=== PATIENT | male | born 1950 | race Caucasian/White ===

== ENCOUNTER 2018-01-08 08:48 | Observation (INO) ==
[2018-01-08] MEDS ORDERED: 0.9 % Sodium Chloride 1,000 ML IVC ONE (08:53)
--- NOTE | 2018-01-08 08:56 | Emergency Department Note ---
Disposition Clinical Impression: Pulmonary vascular congestion, Weakness Fall Qualifiers: Encounter type: initial encounter Qualified Code(s): W19.XXXA - Unspecified fall, initial encounter Disposition: Admitted As Inpatient Condition: Fair Time of Disposition: 12:02 General Adult HPI - General Stated complaint: Weakness both legs Time Seen by Provider: 01/08/18 08:49 Source: patient, EMS Mode of arrival: EMS Limitations: no limitations Nursing Notes Reviewed: Yes Vital Signs Reviewed: Yes - History of Present Illness HPI Narrative: Patient presents to the ED via EMS from the assisted. States he has a history of high blood pressure, but no other medical problems. Lives at a assisted but states he is not sure why. Reportedly, patient tried to get up out of bed this morning, felt short of breath a little lightheaded, but mainly had bilateral leg weakness and fell to the ground as he was unable to walk. Denies any back pain prior to or after the fall. No head injury. Did not lose consciousness. States that he was on the floor for up to 2 hours before someone found him. States he just feels really weak and rundown. Denying any chest pain at this time. No abdominal pain, nausea, vomiting or diarrhea. No fever. No urinary symptoms. No history of CHF. - Related Data Home Medications Medication Instructions Recorded Confirmed Ascorbic Acid [Vitamin C with Stephy 500 mg PO DAILY 01/08/18 01/08/18 Hips] Aspirin [Adult Aspirin] 81 mg PO DAILY 01/08/18 01/08/18 Cholecalciferol (D-3) [Vitamin D] 2,000 unit PO DAILY 01/08/18 01/08/18 Krill Oil 500 mg PO DAILY 01/08/18 01/08/18 Melatonin [Melatin] 3 mg PO HS 01/08/18 01/08/18 Metoprolol [Lopressor] 25 mg PO BID 01/08/18 01/08/18 Allergies Allergy/AdvReac Type Severity Reaction Status Date / Time No Known Allergies Allergy Verified 01/08/18 09:04 Review of Systems: As reviewed in the HPI. All other systems reviewed are negative or normal. Past Medical History - Past Medical History Attestation: Yes The following information was validated with the patient. Source: patient, old records reviewed Physical Exam CONSTITUTIONAL: [Chronically ill, alert and in no acute distress] EYES: [EOMI, clear conjunctiva, PERRLA] HENT: [Normocephalic, atraumatic, moist mucus membranes, normal oropharynx] NECK: [normal inspection, full ROM, trachea midline, no obvious swelling] PULMONARY: [normal lung sounds bilaterally, normal chest rise and fall, no respiratory distress or stridor, no wheezes, no rales, no rhonchi CARDIOVASCULAR: [regular rate, regular rhythm, normal heart sounds, no murmurs, distal extremities are warm and well perfused] GASTROINSTESTINAL: [soft, non-tender, non-rigid, non-distended, no guarding, no rebound, normal bowel sounds] GENITOURINARY/RECTAL: [deferred] NEUROLOGIC: [Alert, oriented x3, normal speech, moves all extremities, but lower extremities are significantly weaker compared to upper, unable to ambulate without assistance] EXTREMITIES: [Normal inspection, full ROM, no tenderness, + pedal edema, normal capillary refill] MUSCULOSKELETAL: [no gross deformities, atraumatic] SKIN: [No cyanosis, no diaphoresis, normal color, warm, no rash] PSYCHIATRIC: [normal mood and affect] Course Course Narrative: patient presenting with weakness, fall, 1-2 hour down time and possible near syncope. Will get labs including CK and head CT and admit. - Reevaluation(s) Reevaluation #1: labs are ok. patient still weak. Will admit for echo and MRI. Patient also had vascular congestion on CXR which is new. Vital Signs Temperature 97.9 F 01/08/18 08:51 Pulse Rate 82 01/08/18 08:51 Respiratory Rate 18 01/08/18 08:51 Blood Pressure 150/92 01/08/18 08:51 O2 Sat by Pulse Oximetry 95 01/08/18 08:51 Temperature 98.9 F 01/08/18 16:13 Pulse Rate 88 01/08/18 16:13 Respiratory Rate 18 01/08/18 16:13 Blood Pressure 116/73 01/08/18 16:13 O2 Sat by Pulse Oximetry 94 01/08/18 16:13 Oxygen Delivery Oxygen Delivery Room Air Medical Decision Making - Medical Records Medical records reviewed: Yes I reviewed the patient's medical records. - Lab Data Lab results reviewed: Yes I reviewed the patient's lab results. Result diagrams: 01/08/18 08:53 01/08/18 10:23 Lab Results 01/08/18 01/08/18 01/08/18 Range/Units 08:53 08:53 08:53 WBC 7.5 (4.3-11.1) K/mcL RBC 4.74 (4.19-5.50) M/mcL Hgb 14.8 (12.9-16.9) g/dL Hct 43.5 (37.5-50.1) % MCV 91.8 (83.0-100.0) fL MCH 31.2 (28.0-33.3) pg MCHC 34.0 (31.6-35.5) g/dL RDW 13.2 (11.5-14.5) % Plt Count 169 (140-400) K/mcL MPV 9.5 (9.4-12.4) fL Immature Gran % 0.4 (0-4) % Seg Neutrophils % 76.8 % Lymphocytes % 15.9 % Monocytes % 6.1 % Eosinophils % 0.4 % Basophils % 0.4 % Neutrophils # 5.7 (1.6-8.9) K/mcL Lymphocytes # 1.2 (0.6-4.6) K/mcL Monocytes # 0.5 (0.0-1.3) K/mcL Eosinophils # 0.0 (0.0-0.6) K/mcL Basophils # 0.0 (0.0-0.2) K/mcL PT 11.5 (9.4-12.1) Seconds INR 1.0 Sodium Cancelled Potassium Cancelled Chloride Cancelled Carbon Dioxide Cancelled BUN Cancelled Creatinine Cancelled Est GFR ( Amer) Cancelled Est GFR (Non-Af Amer) Cancelled BUN/Creatinine Ratio Cancelled Glucose Cancelled Calculated Osmolality Cancelled Lactic Acid (0.5-2.2) mmol/L Calcium Cancelled Venous Ioniz Calcium (1.15-1.35) mmol/L Phosphorus Cancelled Magnesium Cancelled Creatine Kinase Cancelled Troponin I < 0.03 (< 0.04) ng/mL B-Natriuretic Peptide (Less than 100) pg/mL TSH 1.963 (0.340-5.600) mcIU/mL Urine Color (Yellow) Urine Clarity (Clear) Urine pH (5.0-8.0) pH Units Ur Specific [place] (1.010-1.025) Urine Protein (Neg-Trace) mg/dL Urine Glucose (UA) (Normal) mg/dL Urine Ketones (Negative) mg/dL Urine Blood (Negative) Urine Nitrite (Negative) Urine Bilirubin (Negative) Urine Urobilinogen (Normal) mg/dL Ur Leukocyte Esterase (Negative) Ur Culture Indicated? (NO) Specimen Rejected 01/08/18 01/08/18 01/08/18 Range/Units 08:53 09:20 09:20 WBC (4.3-11.1) K/mcL RBC (4.19-5.50) M/mcL Hgb (12.9-16.9) g/dL Hct (37.5-50.1) % MCV (83.0-100.0) fL MCH (28.0-33.3) pg MCHC (31.6-35.5) g/dL RDW (11.5-14.5) % Plt Count (140-400) K/mcL MPV (9.4-12.4) fL Immature Gran % (0-4) % Seg Neutrophils % % Lymphocytes % % Monocytes % % Eosinophils % % Basophils % % Neutrophils # (1.6-8.9) K/mcL Lymphocytes # (0.6-4.6) K/mcL Monocytes # (0.0-1.3) K/mcL Eosinophils # (0.0-0.6) K/mcL Basophils # (0.0-0.2) K/mcL PT (9.4-12.1) Seconds INR Sodium Potassium Chloride Carbon Dioxide BUN Creatinine Est GFR ( Amer) Est GFR (Non-Af Amer) BUN/Creatinine Ratio Glucose Calculated Osmolality Lactic Acid 1.6 (0.5-2.2) mmol/L Calcium Venous Ioniz Calcium (1.15-1.35) mmol/L Phosphorus Magnesium Creatine Kinase Troponin I (< 0.04) ng/mL B-Natriuretic Peptide 20 (Less than 100) pg/mL TSH (0.340-5.600) mcIU/mL Urine Color (Yellow) Urine Clarity (Clear) Urine pH (5.0-8.0) pH Units Ur Specific [place] (1.010-1.025) Urine Protein (Neg-Trace) mg/dL Urine Glucose (UA) (Normal) mg/dL Urine Ketones (Negative) mg/dL Urine Blood (Negative) Urine Nitrite (Negative) Urine Bilirubin (Negative) Urine Urobilinogen (Normal) mg/dL Ur Leukocyte Esterase (Negative) Ur Culture Indicated? (NO) Specimen Rejected Hemolyzed 01/08/18 01/08/18 01/08/18 Range/Units 09:33 09:49 10:23 WBC (4.3-11.1) K/mcL RBC (4.19-5.50) M/mcL Hgb (12.9-16.9) g/dL Hct (37.5-50.1) % MCV (83.0-100.0) fL MCH (28.0-33.3) pg MCHC (31.6-35.5) g/dL RDW (11.5-14.5) % Plt Count (140-400) K/mcL MPV (9.4-12.4) fL Immature Gran % (0-4) % Seg Neutrophils % % Lymphocytes % % Monocytes % % Eosinophils % % Basophils % % Neutrophils # (1.6-8.9) K/mcL Lymphocytes # (0.6-4.6) K/mcL Monocytes # (0.0-1.3) K/mcL Eosinophils # (0.0-0.6) K/mcL Basophils # (0.0-0.2) K/mcL PT (9.4-12.1) Seconds INR Sodium 136 Potassium 4.3 Chloride 108 H Carbon Dioxide 21 L BUN 14 Creatinine 0.56 L Est GFR ( Amer) > 60 Est GFR (Non-Af Amer) > 60 BUN/Creatinine Ratio 25 Glucose 125 H Calculated Osmolality 284 Lactic Acid (0.5-2.2) mmol/L Calcium 9.0 Venous Ioniz Calcium 1.13 L (1.15-1.35) mmol/L Phosphorus 2.7 Magnesium 2.0 Creatine Kinase 113 Troponin I (< 0.04) ng/mL B-Natriuretic Peptide (Less than 100) pg/mL TSH (0.340-5.600) mcIU/mL Urine Color Yellow (Yellow) Urine Clarity Clear (Clear) Urine pH 6.0 (5.0-8.0) pH Units Ur Specific [place] 1.016 (1.010-1.025) Urine Protein Negative (Neg-Trace) mg/dL Urine Glucose (UA) Normal (Normal) mg/dL Urine Ketones Negative (Negative) mg/dL Urine Blood Negative (Negative) Urine Nitrite Negative (Negative) Urine Bilirubin Negative (Negative) Urine Urobilinogen Normal (Normal) mg/dL Ur Leukocyte Esterase Negative (Negative) Ur Culture Indicated? NO (NO) Specimen Rejected - Radiology Data Radiology results reviewed: Yes I reviewed the patient's radiology results. - EKG Data EKG #1 EKG attestation: Yes I reviewed and interpreted this EKG. Attestation Statement - Attestation Attestation: I examined this patient and my medical decision-making was reviewed with the Resident Physician. I agree with the documented findings, disposition and treatment plan as described except to the extent set forth below. Findings consistent with weakness, fall, inability to ambulate. Imaging as well as laboratory analyses show no acute findings. Patient still has systemic weakness with no objective explained above findings. The patient be admitted for further management workup
[2018-01-08 09:36] LABS: VBG Ionized Calcium 1.13 mmol/L (1.15-1.35)
[2018-01-08 09:37] LABS: Basophils % 0.4 %; Eosinophils % 0.4 %; Hematocrit 43.5 % (37.5-50.1); Hemoglobin 14.8 g/dL (12.9-16.9); Immature Granulocytes % 0.4 % (0-4); Lymphocytes # 1.2 K/mcL (0.6-4.6); Lymphocytes % 15.9 %; Mean Corpuscular Hemoglobin 31.2 pg (28.0-33.3); Mean Corpuscular Volume 91.8 fL (83.0-100.0); Mean Platelet Volume 9.5 fL (9.4-12.4); Monocytes # 0.5 K/mcL (0.0-1.3); Monocytes % 6.1 %; Neutrophils # 5.7 K/mcL (1.6-8.9); Platelet Count 169 K/mcL (140-400); Red Blood Count 4.74 M/mcL (4.19-5.50); Red Cell Distribution Width 13.2 % (11.5-14.5); Segmented Neutrophils % 76.8 %
[2018-01-08 09:38] LABS: Prothrombin Time 11.5 Seconds (9.4-12.1)
[2018-01-08 09:57] LABS: Troponin I < 0.03 ng/mL (< 0.04)
[2018-01-08 10:01] LABS: Bilirubin,Urine Negative (Negative); Blood,Urine Negative (Negative); Clarity,Urine Clear (Clear); Color,Urine Yellow (Yellow); Glucose,Urine (UA) Normal (Normal); Ketones,Urine Negative (Negative); Leukocyte Esterase,Urine Negative (Negative); Nitrite,Urine Negative (Negative); Protein,Urine Negative (Neg-Trace); Specific Gravity,Urine 1.016 (1.010-1.025); Urobilinogen,Urine Normal (Normal)
[2018-01-08 10:26] LABS: Thyroid Stimulating Hormone 1.963 mcIU/mL (0.340-5.600)
[2018-01-08 11:00] LABS: BUN/Creatinine Ratio 25 (6-26); Blood Urea Nitrogen 14 mg/dL (8-23); Carbon Dioxide 21 mEq/L (23-29); Chloride 108 mEq/L (98-107); Creatine Kinase 113 Units/L (30-223); Glucose 125 mg/dL (70-105); Osmolality,Calculated 284 (280-300); Phosphorous 2.7 mg/dL (2.7-4.5); Potassium 4.3 mEq/L (3.5-5.1); Sodium 136 mEq/L (136-145); eGFR For Non-African Americans > 60 (> 60)
[2018-01-08] MEDS ORDERED: Naloxone 0.4 MG/ML INJ IVP PRN (12:32)
[2018-01-08] MEDS ORDERED: *HR* Labetalol 20 MG/4 ML SYRINGE IVP PRN (12:50)
--- NOTE | 2018-01-08 12:57 | Internal Med History&Physical ---
Date of Encounter: 01/08/18 Time of Encounter: 12:45 Internal Medicine - H&P: HPI Chief complaint: LE heaviness, fall History of present illness: Mr. Adkins is a 67 year old male with past medical history of hypertension, who is a resident of [facility], presented to the ED after an episode of fall. He states that he has been getting worsening leg swelling for the last week or so. He will try to get out of bed this morning, stood up, but was unable to take the step forward as they felt "heavy". It resulted in him falling forward without head injury or loss of consciousness. After the fall, he was unable to get himself back up and apparently was on the floor for an hour or so before someone else found him. Denies any chest pain, shortness of breath, palpitation , orthopnea, or PND. No fever/chills, flulike symptoms, cough or sputum production, abdominal pain, change in bowel habits, or dysuria. No joint pain or rash. No history of recent immobilization or trauma. States that he does not have any history of CAD or TIA/stroke. No family history of premature CAD. Does not smoke, drink EtOH, or abuses illicit drug. In the ED, he was afebrile and hemodynamically stable. Labs were unremarkable including normal CBC, BMP, and PT/INR. Troponin 1 was negative, electrolytes within normal limits except ionized calcium being 1.13 (low normal limit 1.15). Urinalysis was unremarkable and chest x-ray did not show any consolidation but was suggestive of mild pulmonary vascular congestion. CT head did not show any acute intracranial processes. BNP was not checked and he was given IV fluid in the ER then admitted for observation. Past Med Surg Social Fam HX - Past Medical History Attestation: Yes The following information was validated with the patient. Medical history: hypertension Psychiatric history: anxiety, depression, schizophrenia - Social History Smoking Status: Never smoker Alcohol use: none Drug use: none - Family History Mother History Unknown: Yes Living Status: Hx Family Cardiac Disorders: No Father History Unknown: Yes Living Status: Hx Family Cardiac Disorders: No Internal Medicine - H&P: Meds Ascorbic Acid [Vitamin C with Stephy Hips] 500 mg PO DAILY 01/08/18 [History] Aspirin [Adult Aspirin] 81 mg PO DAILY 01/08/18 [History] Cholecalciferol (D-3) [Vitamin D] 2,000 unit PO DAILY 01/08/18 [History] Krill Oil 500 mg PO DAILY 01/08/18 [History] Melatonin [Melatin] 3 mg PO HS 01/08/18 [History] Metoprolol [Lopressor] 25 mg PO BID 01/08/18 [History] 3 Allergy/AdvReac Type Severity Reaction Status Date / Time No Known Allergies Allergy Verified 01/08/18 09:04 All Systems PM: A 10-system review of systems was performed and is negative for pertinent findings except as documented above in the HPI. - Constitutional Vitals: Temp Pulse Resp BP Pulse Ox 97.8 F 85 16 177/98 96 01/08/18 12:43 01/08/18 12:43 01/08/18 12:43 01/08/18 12:43 01/08/18 12:43 Exam: General: Alert and oriented, not in acute distress. HEENT:EOM, pupils equal, round and reactive. Cardiovascular:Normal S1 & S2, No JVD. Pulse regular. Mild pitting edema on both legs upto mid shins but worse on the right. Lungs: clear to auscultation, no wheezes/rales Abdomen:Soft, non-tender, no rigidity. Extremities: Leg swelling as above, no tenderness on both lower extremities. Calves are supple. Neurological: CN II-XII intact, tongue midline, no gaze preference, no pronator drift. No cerebellar signs and downgoing Babinski bilaterally. Power and sensation fully intact on both upper and lower limbs. Skin:Normal color, no rash, no lesions. Pulses:Carotid and radial pulses normal +2. Rest of the physical exam is non contributory Internal Med - H&P Results - Labs CBC & Chem 7: 01/08/18 08:53 01/08/18 10:23 - Assessment and plan (1) Swelling of lower leg Current Visit: Yes Status: Acute Assessment and plan: slightly worse on the right, no skin changes consistent with chronic venous stasis or cellulitis noted Associated chest x-ray showing mild pulmonary vascular congestion but otherwise asymptomatic and is not requiring oxygen. ?new heart failure, to rule out DVT Check BNP 1 dose of IV lasix 40mg Echo LE doppler (2) Fall Current Visit: Yes Status: Acute Assessment and plan: Appears to be related to the above dx, unable to lift up the leg due to "heaviness" no focal neurological deficits seen, CT Head -ve telemetry overnight for possible underlying arrhythmia check 1 more troponin to rule out ACS PT/OT investigation for LE swelling as above Qualifiers: Encounter type: initial encounter Qualified Code(s): W19.XXXA - Unspecified fall, initial encounter (3) Hypertension Current Visit: Yes Status: Chronic Assessment and plan: elevated blood pressure, apparently on Lopressor 25 mg twice a day at home. Uncontrolled hypertension can possibly explain undiagnosed diastolic heart failure, echo to confirm PRN labetalol today may have to uptitrate or change anti-HTN meds Qualifiers: Hypertension type: essential hypertension Qualified Code(s): I10 - Essential (primary) hypertension (4) DVT prophylaxis Current Visit: Yes Status: Acute Assessment and plan: heparin SQ - Time Spent With Patient Total time spent is greater than 50% in coordination of care (as documented) at patient's floor/unit and/or counseling patient:
[2018-01-08] MEDS ORDERED: Furosemide 40 MG in 0.9 % Sodium Chloride 50 ML IV ONE (13:03)
[2018-01-08] MEDS: *HR* Heparin 5,000 UNIT/ML VIAL SQ SCH ×2 (13:51→21:58)
[2018-01-08] MEDS: Melatonin 3 MG TABLET PO SCH (21:58)
[2018-01-09] MEDS: *HR* Heparin 5,000 UNIT/ML VIAL SQ SCH ×3 (06:15→21:00)
[2018-01-09 06:21] LABS: Hematocrit 40.9 % (37.5-50.1); Hemoglobin 13.8 g/dL (12.9-16.9); Mean Corpuscular HGB Conc 33.7 g/dL (31.6-35.5); Mean Corpuscular Hemoglobin 30.4 pg (28.0-33.3); Mean Corpuscular Volume 90.1 fL (83.0-100.0); Mean Platelet Volume 9.7 fL (9.4-12.4); Platelet Count 168 K/mcL (140-400); Red Blood Count 4.54 M/mcL (4.19-5.50); Red Cell Distribution Width 13.4 % (11.5-14.5)
[2018-01-09 06:35] LABS: BUN/Creatinine Ratio 24 (6-26); Blood Urea Nitrogen 15 mg/dL (8-23); Calcium 9.4 mg/dL (8.6-10.3); Carbon Dioxide 25 mEq/L (23-29); Chloride 104 mEq/L (98-107); Chol/HDL Ratio 6.1 (0-4.9); Glucose 133 mg/dL (70-105); Osmolality,Calculated 285 (280-300); Sodium 136 mEq/L (136-145); eGFR For Non-African Americans > 60 (> 60)
[2018-01-09 07:45] LABS: Estimated Average Glucose 128 mg/dl; Hemoglobin A1C 6.1 %
[2018-01-09] MEDS ORDERED: Krill Oil [Krill Oil] 500 MG PO SCH (09:00)
[2018-01-09] MEDS: Ascorbic Acid 500 MG TABLET PO SCH (09:48)
[2018-01-09] MEDS: Cholecalciferol (D-3) 1,000 UNIT TABLET PO SCH (09:48)
[2018-01-09] MEDS: Aspirin Enteric Coated 81 MG Tablet PO SCH (09:48)
--- NOTE | 2018-01-09 13:08 | Internal Med Progress Note ---
Hospitalist Progress Note - Encounter Date of Encounter: 01/09/18 Time of Encounter: 11:30 - Subjective Interval History: states that he feels pretty good, still has leg heaviness. Breathing is ok, no chest pain - Exam Vitals: Temp Pulse Resp BP Pulse Ox 98.2 F 85 16 132/77 93 01/09/18 11:18 01/09/18 11:18 01/09/18 11:18 01/09/18 11:18 01/09/18 11:18 Exam: General: Alert and oriented, not in acute distress. Cardiovascular:Normal S1 & S2, No JVD. Pulse regular. Mild pitting edema on both legs upto mid shins but worse on the right. Lungs: clear to auscultation, no wheezes/rales Abdomen:Soft, non-tender, no rigidity. Extremities: Leg swelling as above, no tenderness on both lower extremities. Calves are supple. Neurological: CN II-XII intact, tongue midline, no gaze preference, no pronator drift. No cerebellar signs and downgoing Babinski bilaterally. Power and sensation fully intact on both upper and lower limbs. - Assessment and Plan (1) Swelling of lower leg Current Visit: Yes Status: Acute Assessment and Plan: slightly worse on the right, no skin changes consistent with chronic venous stasis or cellulitis noted Associated chest x-ray showing mild pulmonary vascular congestion but otherwise asymptomatic and is not requiring oxygen. less likely due to new onset of CHF given normal BNP, although it can be falsely low in obese patient, echo report pending Doppler reportedly showed superficial vein thrombosis (no official report available) -> depending on the proximity to deep vein, will decide on anticoagulation PT/OT (2) Fall Current Visit: Yes Status: Acute Assessment and Plan: Appears to be related to the above dx, unable to lift up the leg due to "heaviness" no focal neurological deficits seen, CT Head -ve troponin x 2 negative no arrhythmia noted overnight PT/OT investigation for LE swelling as above (3) Hypertension Current Visit: Yes Status: Chronic Assessment and Plan: elevated blood pressure, apparently on Lopressor 25 mg twice a day at home. Uncontrolled hypertension can possibly explain undiagnosed diastolic heart failure, echo to confirm start coreg 6.25mg BID, PRN labetalol (4) DVT prophylaxis Current Visit: Yes Status: Acute Assessment and Plan: heparin SQ - Time Spent with Patient Total time spent is greater than 50% in coordination of care (as documented) at patient's floor/unit and/or counseling patient: Plan of Care Discussed with: nurse Internal Medicine: Result - Labs CBC & Chem 7: 01/09/18 05:47 01/09/18 05:47 Labs: Short CBC 01/09/18 Range/Units 05:47 WBC 6.5 (4.3-11.1) K/mcL Hgb 13.8 (12.9-16.9) g/dL Hct 40.9 (37.5-50.1) % Plt Count 168 (140-400) K/mcL BMP 01/09/18 05:47 Sodium 136 Potassium 4.0 Chloride 104 Carbon Dioxide 25 BUN 15 Creatinine 0.63 L Glucose 133 H Calcium 9.4 Cardiac Enzymes 01/08/18 Range/Units 14:40 Troponin I < 0.03 (< 0.04) ng/mL - ABG Interpretation ABG results: PT/INR, D-dimer PT 11.5 Seconds (9.4-12.1) 01/08/18 08:53 Consult Discharge Plan - Plan [facility]errals: [facility] [Primary Care Provider[facility] - (2) Fall Qualifiers: Encounter type: initial encounter Qualified Code(s): W19.XXXA - Unspecified fall, initial encounter (3) Hypertension Qualifiers: Hypertension type: essential hypertension Qualified Code(s): I10 - Essential (primary) hypertension
[2018-01-09] MEDS: Melatonin 3 MG TABLET PO SCH (21:00)
[2018-01-10] MEDS: *HR* Heparin 5,000 UNIT/ML VIAL SQ SCH (05:18)
[2018-01-10] MEDS: Aspirin Enteric Coated 81 MG Tablet PO SCH (07:39)
[2018-01-10] MEDS: Cholecalciferol (D-3) 1,000 UNIT TABLET PO SCH (07:39)
[2018-01-10] MEDS: Ascorbic Acid 500 MG TABLET PO SCH (07:39)
--- NOTE | 2018-01-10 10:17 | Discharge Summary ---
- NOTES TO OUTPATIENT PROVIDER Notes to Outpatient Provider: Patient with history of hypertension was admitted for bilateral lower extremity swelling. There was a concern of whether his symptoms were related to new onset CHF as his initial CXR was reported to have pulmonary vascular congestion. However, he did not require any oxygen and his BNP was only 20. Echocardiogram showed intact EF with mild diastolic dysfunction. Doppler study however demonstrated superficial vein thrombosis at bilateral GSV below the knees. Since it was remote from saphenofemoral junction , he was not started on anticoagulation and was advised to follow up outpatient for re-evaluation. If there is any sign of worsening, he will need repeat doppler to see whether there is a propagation of thrombosis which will then warrant systemic anticoagulation. He will also be discharged with PO lasix 20mg. Date of Encounter: 01/10/18 Time of Encounter: 08:50 - Discharge Diagnosis (1) Superficial vein thrombosis Priority: Primary Status: Acute (2) Fall Priority: Secondary Status: Acute Qualifiers: Encounter type: initial encounter Qualified Code(s): W19.XXXA - Unspecified fall, initial encounter (3) Hypertension Priority: Secondary Status: Chronic Qualifiers: Hypertension type: essential hypertension Qualified Code(s): I10 - Essential (primary) hypertension (4) DVT prophylaxis Priority: Secondary Status: Acute Hospital course: Mr. Adkins is a 67 year old male with history of hypertension who was admitted for bilateral lower extremity swelling. There was a concern of whether his symptoms were related to new onset CHF as his initial CXR was reported to have pulmonary vascular congestion. However, he did not require any oxygen and his BNP was only 20. He was given 1 dose of IV lasix which helped with his swelling a bit. Echocardiogram showed intact EF with mild diastolic dysfunction. Doppler study however demonstrated superficial vein thrombosis at bilateral GSV below the knees. Since it was remotely away from saphenofemoral junction, he was not started on anticoagulation and was advised to follow up outpatient for re-evaluation. If there is any sign of worsening, he will need repeat doppler to see whether there is a propagation of thrombosis which will then warrant systemic anticoagulation. PT had also evaluated the patient and deemed safe for discharge back to the prior setting without additional needs. He will be treated with NSAIDs and was advised to elevate his legs as much as possible. He will also be discharged with PO lasix 20mg and repeat BMP in a week. - Time Spent with Patient Total time spent providing and/or coordinating discharge services: Greater than 30 minutes - Discharge Medications Prescriptions: Atorvastatin [Lipitor] 40 mg PO HS #30 tablet Carvedilol [Coreg] 6.25 mg PO BIDWM #60 tablet Furosemide [Lasix] 20 mg PO DAILY #30 tablet Ibuprofen 200 mg PO TID 5 Days #15 tablet Home Medications: Ascorbic Acid [Vitamin C with Stephy Hips] 500 mg PO DAILY 01/08/18 [History] Aspirin [Adult Aspirin] 81 mg PO DAILY 01/08/18 [History] Cholecalciferol (D-3) [Vitamin D] 2,000 unit PO DAILY 01/08/18 [History] Krill Oil 500 mg PO DAILY 01/08/18 [History] Melatonin [Melatin] 3 mg PO HS 01/08/18 [History] Atorvastatin [Lipitor] 40 mg PO HS #30 tablet 01/10/18 [Rx] Carvedilol [Coreg] 6.25 mg PO BIDWM #60 tablet 01/10/18 [Rx] Furosemide [Lasix] 20 mg PO DAILY #30 tablet 01/10/18 [Rx] Ibuprofen 200 mg PO TID 5 Days #15 tablet 01/10/18 [Rx] Allergies/Adverse Reactions: 3 Allergy/AdvReac Type Severity Reaction Status Date / Time No Known Allergies Allergy Verified 01/08/18 09:04 Date of admission: 01/08/18 12:06 Primary care physician: PCP [place] Consults: 01/08/18 12:35 Consult to Occupational Therapy [CONS] Routine Comment: Evaluate, develop and implement POC Reason for Consult: fall, deconditioning Does patient have active BEDREST order?: No Is patient medically & hemodynamically stable?: Yes Consult to Physical Therapy [CONS] Routine Comment: Evaluate, develop and implement POC Reason for Consult: fall, deconditioning Does patient have active BEDREST order?: No Is patient medically & hemodynamically stable?: Yes 01/08/18 12:54 Consult to Pastoral Services [CONS] Routine Comment: - Constitutional Vitals: Temp Pulse Resp BP Pulse Ox 97.7 F 67 16 133/86 95 01/10/18 06:48 01/10/18 06:48 01/10/18 06:48 01/10/18 06:48 01/10/18 06:48 Exam: General: Alert and oriented, not in acute distress. Cardiovascular:Normal S1 & S2, No JVD. Pulse regular. Mild pitting edema on upto ankles on the right Lungs: clear to auscultation, no wheezes/rales Abdomen:Soft, non-tender, no rigidity. Extremities: Leg swelling as above, no tenderness on both lower extremities. Calves are supple. Neurological: CN II-XII intact, tongue midline, no gaze preference, no pronator drift. No cerebellar signs and downgoing Babinski bilaterally. Power and sensation fully intact on both upper and lower limbs. - Patient Status Disposition: Home, Self-Care Condition: Fair Overall status at discharge: patient is progressing back to baseline - Discharge Instructions Instructions: Chronic Hypertension (DC), Fall Prevention (DC) Follow Up With: TIARA,PCP [Primary Care Provider] - 01/17/18 3:00 pm (Please follow up as schedule...) Forms: ED Satisfaction Letter - Diet and Activity Activity: as per physical therapy Diet: low fat, low cholesterol
[2018-01-10 10:45] VITALS: BP 131/74
--- NOTE | 2018-01-11 07:39 | Electrocardiograph Report ---
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
== END 2018-01-10 15:53 | disposition home or self-care (01) ==
LOC: 2ANU 08:48 → EMEROOARM 08:48 → SUATTDRO 12:06 → 2ANU 12:29
PROVIDERS: ADMIT Internal Medicine; ATTEND Internal Medicine

== ENCOUNTER 2018-02-08 08:00 | Inpatient (IN) ==
--- NOTE | 2018-02-08 08:43 | Emergency Department Note ---
Disposition Clinical Impression: Leg weakness, bilateral Disposition: Admitted As Inpatient Condition: Good Time of Disposition: 09:49 Weakness HPI - General Stated complaint: Weakness Time Seen by Provider: 02/08/18 08:35 Source: patient, EMS Mode of arrival: EMS Limitations: no limitations Nursing Notes Reviewed: Yes Vital Signs Reviewed: Yes - History of Present Illness HPI Narrative: Patient arrives by EMS from a nursing home. He states he woke up generally weak this morning, especially in his legs. He states he usually walks with a walker but cannot ambulate fully today. He has had this before. He describes a mechanical fall without injury. He denies headache, chest pain, back pain or any other acute symptoms. Pt Subjective Complaint: generalized weakness/fatigue Onset (ago): hour(s) Duration: constant Location: LLE, RLE Migration: none Pain Severity: none Improves with: none Worsens with: movement Associated symptoms: Reports: other (Fall without injury) - Related Data Home Medications Medication Instructions Recorded Confirmed Ascorbic Acid [Vitamin C with Stephy 500 mg PO DAILY 01/08/18 01/08/18 Hips] Aspirin [Adult Aspirin] 81 mg PO DAILY 01/08/18 01/08/18 Cholecalciferol (D-3) [Vitamin D] 2,000 unit PO DAILY 01/08/18 01/08/18 Krill Oil 500 mg PO DAILY 01/08/18 01/08/18 Melatonin [Melatin] 3 mg PO HS 01/08/18 01/08/18 Previous Rx's Medication Instructions Recorded Atorvastatin [Lipitor] 40 mg PO HS #30 tablet 01/10/18 Carvedilol [Coreg] 6.25 mg PO BIDWM #60 tablet 01/10/18 Furosemide [Lasix] 20 mg PO DAILY #30 tablet 01/10/18 Ibuprofen 200 mg PO TID 5 Days #15 tablet 01/10/18 Allergies Allergy/AdvReac Type Severity Reaction Status Date / Time No Known Allergies Allergy Verified 01/08/18 09:04 All systems ED: reviewed and negative except as stated. Constitutional: Reports: weakness Eyes: Reports: as per HPI ENT ED: Reports: as per HPI Cardiovascular: Reports: as per HPI Respiratory: Reports: as per HPI Gastrointestinal: Reports: as per HPI Genitourinary: Reports: as per HPI Musculoskeletal: Reports: as per HPI Integumentary: Reports: as per HPI Neurological: Reports: weakness Psychiatric: Reports: as per HPI Endocrine: Reports: as per HPI Hematological/Lymphatic: Reports: as per HPI Allergic/Immunologic: Reports: as per HPI Past Medical History - Past Medical History Source: patient Medical history: Reports: hypertension Psychiatric history: Reports: anxiety, depression, schizophrenia - Social History Smoking Status: Never smoker Smokeless Tobacco Status: No Alcohol use: Reports: none Drug use: Reports: none Physical Exam - General Limitations: no limitations General appearance: alert - Head Head exam: atraumatic - Eye Eye exam: Present: normal appearance - ENT ENT exam: normal exam - Neck Neck exam: Present: normal inspection, full ROM - Chest Chest inspection: Present: normal inspection, symmetric chest wall rise - Respiratory Respiratory exam: Present: normal lung sounds bilaterally - Cardiovascular Cardiovascular exam: Present: regular rate, normal rhythm, normal heart sounds - Abdominal Exam Abdominal exam: Present: soft, Non-Tender - Rectal Exam Rectal exam: Present: deferred - Extremities Exam Extremities exam: Present: normal inspection, other (Full movement of all 4 extremities without limitation. He is able to hold his legs off the bed versus gravity but bilaterally his leg seemed weaker than his upper extremities) - Back Exam Back exam: Present: normal inspection - Neurological Exam Neurological exam: Present: alert, oriented X3, CN II-XII intact - Psychiatric Psychiatric exam: Present: flat affect - Skin Skin exam: Present: warm, dry, intact Course Course Narrative: Patient presents with the inability to ambulate due to lower extremity weakness. I cannot appreciate any focal neurologic deficit. I do see that he was admitted for similar symptoms several weeks ago. - Reevaluation(s) Reevaluation #1: The patient refuses to attempt to ambulate with the assistance of staff and a walker. I will request admission. He lives in a nursing home and is a fall risk Vital Signs Temperature 98.1 F 02/08/18 08:39 Pulse Rate 73 02/08/18 08:39 Respiratory Rate 20 02/08/18 08:39 Blood Pressure 133/88 02/08/18 08:39 O2 Sat by Pulse Oximetry 93 02/08/18 08:39 Temperature 98.1 F 02/08/18 08:39 Pulse Rate 73 02/08/18 08:39 Respiratory Rate 20 02/08/18 08:39 Blood Pressure 133/88 02/08/18 08:39 O2 Sat by Pulse Oximetry 93 02/08/18 08:39 Oxygen Delivery Oxygen Delivery Room Air Weakness - Medical Records Medical records reviewed: Yes I reviewed the patient's medical records. - Lab Data Lab results reviewed: Yes I reviewed the patient's lab results. Result diagrams: 02/08/18 08:45 02/08/18 08:45 Lab Results 02/08/18 02/08/18 02/08/18 Range/Units 08:45 08:45 09:24 WBC 7.3 (4.3-11.1) K/mcL RBC 4.50 (4.19-5.50) M/mcL Hgb 14.1 (12.9-16.9) g/dL Hct 40.5 (37.5-50.1) % MCV 90.0 (83.0-100.0) fL MCH 31.3 (28.0-33.3) pg MCHC 34.8 (31.6-35.5) g/dL RDW 13.1 (11.5-14.5) % Plt Count 151 (140-400) K/mcL MPV 9.6 (9.4-12.4) fL Immature Gran % 0.1 (0-4) % Seg Neutrophils % 69.6 % Lymphocytes % 22.1 % Monocytes % 6.3 % Eosinophils % 1.5 % Basophils % 0.4 % Neutrophils # 5.1 (1.6-8.9) K/mcL Lymphocytes # 1.6 (0.6-4.6) K/mcL Monocytes # 0.5 (0.0-1.3) K/mcL Eosinophils # 0.1 (0.0-0.6) K/mcL Basophils # 0.0 (0.0-0.2) K/mcL Sodium 138 (136-145) mEq/L Potassium 4.3 (3.5-5.1) mEq/L Chloride 110 H (98-107) mEq/L Carbon Dioxide 21 L (23-29) mEq/L BUN 15 (8-23) mg/dL Creatinine 0.56 L (0.70-1.30) mg/dL Est GFR ( Amer) > 60 (> 60) Est GFR (Non-Af Amer) > 60 (> 60) BUN/Creatinine Ratio 27 H (6-26) Glucose 141 H (70-105) mg/dL Calculated Osmolality 289 (280-300) Calcium 9.0 (8.6-10.3) mg/dL Magnesium 2.0 (1.6-2.6) mg/dL Total Bilirubin 0.9 (0.3-1.0) mg/dL AST 19 (13-39) Units/L ALT 25 (7-52) Units/L Alkaline Phosphatase 100 (34-104) Units/L Creatine Kinase 125 (30-223) Units/L Troponin I < 0.03 (< 0.04) ng/mL Serum Total Protein 6.9 (6.4-8.9) g/dL Albumin 3.9 (3.5-5.7) g/dL Globulin 3.0 (2.4-3.5) g/dL Albumin/Globulin Ratio 1.3 (1.1-2.2) Urine Color Yellow (Yellow) Urine Clarity Clear (Clear) Urine pH 6.0 (5.0-8.0) pH Units Ur Specific [place] 1.008 L (1.010-1.025) Urine Protein Negative (Neg-Trace) mg/dL Urine Glucose (UA) Normal (Normal) mg/dL Urine Ketones Negative (Negative) mg/dL Urine Blood Negative (Negative) Urine Nitrite Negative (Negative) Urine Bilirubin Negative (Negative) Urine Urobilinogen Normal (Normal) mg/dL Ur Leukocyte Esterase Negative (Negative) - Radiology Data Radiology results reviewed: Yes I reviewed the patient's radiology results. - EKG Data EKG attestation: Yes I reviewed and interpreted this EKG. EKG results narrative: Normal sinus rhythm rate 70 to P-R 164 QRS 84 QT/QTC 398/436. No acute ST segment elevation. No studies available for comparison at the time of the patient's arrival
[2018-02-08 08:58] LABS: Basophils % 0.4 %; Eosinophils # 0.1 K/mcL (0.0-0.6); Eosinophils % 1.5 %; Hematocrit 40.5 % (37.5-50.1); Hemoglobin 14.1 g/dL (12.9-16.9); Immature Granulocytes % 0.1 % (0-4); Lymphocytes # 1.6 K/mcL (0.6-4.6); Lymphocytes % 22.1 %; Mean Corpuscular HGB Conc 34.8 g/dL (31.6-35.5); Mean Corpuscular Hemoglobin 31.3 pg (28.0-33.3); Mean Platelet Volume 9.6 fL (9.4-12.4); Monocytes # 0.5 K/mcL (0.0-1.3); Monocytes % 6.3 %; Neutrophils # 5.1 K/mcL (1.6-8.9); Platelet Count 151 K/mcL (140-400); Red Cell Distribution Width 13.1 % (11.5-14.5); Segmented Neutrophils % 69.6 %
[2018-02-08 09:19] LABS: Troponin I < 0.03 ng/mL (< 0.04)
[2018-02-08 09:20] LABS: Alanine Aminotransferase 25 Units/L (7-52); Albumin 3.9 g/dL (3.5-5.7); Albumin/Globulin Ratio 1.3 (1.1-2.2); Alkaline Phosphatase 100 Units/L (34-104); Aspartate Amino Transferase 19 Units/L (13-39); BUN/Creatinine Ratio 27 (6-26); Bilirubin,Total 0.9 mg/dL (0.3-1.0); Blood Urea Nitrogen 15 mg/dL (8-23); Carbon Dioxide 21 mEq/L (23-29); Chloride 110 mEq/L (98-107); Creatine Kinase 125 Units/L (30-223); Glucose 141 mg/dL (70-105); Osmolality,Calculated 289 (280-300); Potassium 4.3 mEq/L (3.5-5.1); Sodium 138 mEq/L (136-145); Total Protein 6.9 g/dL (6.4-8.9); eGFR For Non-African Americans > 60 (> 60)
[2018-02-08 09:30] LABS: Bilirubin,Urine Negative (Negative); Blood,Urine Negative (Negative); Clarity,Urine Clear (Clear); Color,Urine Yellow (Yellow); Glucose,Urine (UA) Normal (Normal); Ketones,Urine Negative (Negative); Leukocyte Esterase,Urine Negative (Negative); Nitrite,Urine Negative (Negative); Protein,Urine Negative (Neg-Trace); Specific Gravity,Urine 1.008 (1.010-1.025); Urobilinogen,Urine Normal (Normal)
[2018-02-08] MEDS ORDERED: Acetaminophen 325 MG TABLET PO PRN (13:29)
[2018-02-08] MEDS ORDERED: traMADol 50 MG TABLET PO PRN (13:29)
[2018-02-08] MEDS ORDERED: Naloxone 0.4 MG/ML INJ IVP PRN (13:29)
--- NOTE | 2018-02-08 13:44 | Internal Med History&Physical ---
<AyshaCarlos Enrique - Last Filed: 02/08/18 14:26> Date of Encounter: 02/08/18 Time of Encounter: 12:45 Internal Medicine - H&P: HPI Chief complaint: Bilateral LE weakness Admitted From: Emergency Dept Plans for Post Hospital Care: Home History of present illness: Mr. Adkins is a 67 year old male w/PMH of HTN, HLD, anxiety, depression, and schizophrenia presents from the ED w/CC of bilateral LE weakness that has been worsening according to the pt. He reports that he went to get up today and fell d/t his legs going out from under him without warning. States this happened before approx. two years ago. States that his legs feel warm but denies numbness or tingling. Denies chronic back pain. States he has no CVA hx. No alleviating or aggravating factors. Uses a walker. Reports falling this morning w/o hitting his head or blacking out. Pt. denies recent illness, fever, chills, nausea, vomiting, headache, chest pain, shortness of breath, changes in vision, numbness, tingling, unusual bleeding, abdominal pain, back pain, diarrhea, constipation, dizziness, lightheadedness, pre-syncope, or syncope. Past Med Surg Social Fam HX - Past Medical History Source: patient, old records reviewed Medical history: hyperlipidemia, hypertension Psychiatric history: anxiety, depression, schizophrenia - Social History Smoking Status: Never smoker Smokeless Tobacco Status: No Alcohol use: none Drug use: none Current living situation: [facility] Activity Level: Uses cane/walker Recent Out of Country Travel Within the Last 8 Weeks: No Exposure or Possible Exposure to Illness During Travel: No - Family History Mother Race: Family Member Ethnicity: Non- Living Status: Age at : 79 Cause of : MRSA in decubitus ulcer Father Race: Family Member Ethnicity: Non- Living Status: Age at : 64 Cause of : Emphysema Hx Family Respiratory Disorders: Yes (Emphysema/COPD) Sister Race: Family Member Ethnicity: Non- Living Status: Still Living Hx Family Respiratory Disorders: Yes (COPD/Emphysema) Internal Medicine - H&P: Meds Ascorbic Acid [Vitamin C with Stephy Hips] 500 mg PO DAILY 01/08/18 [History] Aspirin [Adult Aspirin] 81 mg PO DAILY 01/08/18 [History] Cholecalciferol (D-3) [Vitamin D] 2,000 unit PO DAILY 01/08/18 [History] Krill Oil 500 mg PO DAILY 01/08/18 [History] Melatonin [Melatin] 3 mg PO HS 01/08/18 [History] Atorvastatin [Lipitor] 40 mg PO HS #30 tablet 01/10/18 [Rx] Carvedilol [Coreg] 6.25 mg PO BIDWM #60 tablet 01/10/18 [Rx] Furosemide [Lasix] 20 mg PO DAILY #30 tablet 01/10/18 [Rx] Ibuprofen 200 mg PO TID 5 Days #15 tablet 01/10/18 [Rx] 3 Allergy/AdvReac Type Severity Reaction Status Date / Time No Known Allergies Allergy Verified 01/08/18 09:04 All Systems PM: A 10-system review of systems was performed and is negative for pertinent findings except as documented above in the HPI. - Constitutional Constitutional: as per HPI, falls, weakness (Bilateral LEs), no chills, no fever (s), no night sweats - EENT Eyes: no change in vision, no discharge, no pain, no photophobia Ears: no ear discharge, no ear pain, no tinnitus Nose, mouth and throat: no dysphagia, no nasal discharge, no neck pain, no sore throat - Breasts Breasts: as per HPI - Cardiovascular Cardiovascular ROS IM: as per HPI, no chest pain, no diaphoresis, no dyspnea, no lightheadedness, no palpitations, no syncope - Respiratory Respiratory: as per HPI, no cough, no dyspnea, no wheezing, no excessive phlegm production - Gastrointestinal Gastrointestinal: as per HPI, no abdominal pain, no diarrhea, no hematemesis, no hematochezia, no melena, no nausea, no vomiting - Genitourinary Genitourinary ROS male: as per HPI - Musculoskeletal Musculoskeletal ROS IM: as per HPI, muscle weakness (Bilateral LEs), no numbness , no tingling - Integumentary Integumentary IM: no rash, no unusual bruising - Neurological Neurological ROS: as per HPI, weakness (Bilateral LEs), no confusion, no convulsions, no focal weakness, no numbness, no tingling, no tremor(s) - Psychiatric Psychiatric: as per HPI, anxiety, depression, other (Schizophrenia) - Endocrine Endocrine IM: as per HPI - Hematologic/Lymphatic Hematologic/Lymphatic: no easy bruising - Allergic/Immunologic Allergic/Immunologic: as per HPI - Constitutional Vitals: Temp Pulse Resp BP Pulse Ox 97.8 F 61 16 115/80 95 02/08/18 11:00 02/08/18 11:00 02/08/18 11:00 02/08/18 11:00 02/08/18 11:00 General appearance: Present: cooperative, A&O X 3, pleasant, no acute distress, obese, answers questions appropriately Exam: Patient examined at bedside. Pt. resting comfortably in bed and given neuro exam to assess for other weakness/deficits. Bilateral UE strength equal. No facial droop, pronator drift, slurred speech, or other neuro deficits. LE weakness bilaterally. Pt. able to raise legs off bed but unable to hold for extended period of time. Weakness in push/pull of feet. Bilateral LEs sensitive to touch/stimulation. Pt. denies any other complaints at this time. VS: temp 97.8F, HR 61, RR 16, BP 115/80, SpO2 95% on RA. - Head Head exam: Present: atraumatic, normocephalic - Eye Eye exam: Present: PERRL, conjuntiva pink, sclera anicteric Pupils: Present: PERRL - ENT ENT exam: Present: normal exam - Neck Neck exam general surgery: Present: normal inspection, supple, trachea midline. Absent: lymphadenopathy - Respiratory Respiratory exam: Present: CTAB. Absent: accessory muscle use, rales, rhonchi, wheezes - Cardiovascular Cardiovascular exam: Present: RRR, +S1, +S2. Absent: diastolic murmur, gallop, rubs, systolic murmur - GI/Abdominal GI/Abdominal exam: Present: normal bowel sounds, soft, no peritoneal signs. Absent: distended, tenderness - Rectal Rectal exam: Present: deferred - Additional comments: exam deferred. - Extremities Exam Extremities exam: Present: warm, radial pulses palpable and symmetrical. Absent : calf tenderness, cyanotic, pedal edema - Back Exam Back exam: Present: normal inspection - Neurological Exam Neurological exam: Present: alert, CN II-XII intact, oriented X3, no focal deficits. Absent: pronater drift, facial droop, speech deficit - Psychiatric Psychiatric exam: Present: normal affect, normal mood - Skin Skin exam: Present: dry, intact Internal Med - H&P Results - Labs CBC & Chem 7: 02/08/18 08:45 02/08/18 08:45 - EKG Data EKG shows normal: sinus rhythm - EKG Data Prior EKG available for review: no EKG comments: 02/08/18 13:57 EKG dated 02/08/18 shows sinus rhythm with abnormal R-wave progression and early transition, and borderline T wave abnormalities. - Assessment and plan (1) Leg weakness, bilateral Current Visit: Yes Status: Acute Assessment and plan: Acute on chronic bilateral LE weakness. Pt. states same sx approx. 2 years ago. Denies back pain or back injury. Reports using walker daily but was too weak in LEs to ambulate today which resulted in fall. Pt. denies hx of CVA/TIA. Pt. denies numbness or tingling in LEs but reports a sensation of warmth in both legs. MRI of the head/brain to r/o infarct/ischemia. MRI of the lumbar and thoracic spine to r/o possible anomalies or compression fxs. Will consider adding a Neurology consult if MRI results are abnormal. Pt. discussed w/Dr. Anaya who is in agreement w/plan of care. Pt. is moderate risk for further morbidity and injury based on current weakness in bilateral LEs, increased falls risk and inability to ambulate safely, current obesity, and risk factors. Observation. (2) Fall Current Visit: Yes Status: Acute Assessment and plan: Acute fall today d/t bilateral LE weakness. Pt. denies blacking out, hitting his head, or having any UE weakness. Denies slurred speech, numbness, or tingling. Falls/safety precautions. Up with assist only. Bedside commode. PT/OT consults ordered to assess rehabilitation needs for post-discharge planning. Qualifiers: Encounter type: initial encounter Qualified Code(s): W19.XXXA - Unspecified fall, initial encounter (3) HTN (hypertension) Current Visit: Yes Status: Chronic Assessment and plan: Hx of chronic HTN. Monitor pt. and VS. Continue pts. Coreg. Qualifiers: Hypertension type: essential hypertension Qualified Code(s): I10 - Essential (primary) hypertension (4) HLD (hyperlipidemia) Current Visit: Yes Status: Chronic Assessment and plan: Hx of chronic HLD. Lipid panel in a.m. labs. Continue pts. Lipitor. Qualifiers: Hyperlipidemia type: pure hypercholesterolemia Qualified Code(s): E78.00 - Pure hypercholesterolemia, unspecified; E78.0 - Pure hypercholesterolemia (5) Anxiety and depression Current Visit: Yes Status: Chronic Assessment and plan: Hx of chronic anxiety and depression. Pt. does not currently take medications for these. SW consult to assess for psychiatric referral for medication mgmt. (6) DVT prophylaxis Current Visit: Yes Status: Acute Assessment and plan: SQ heparin 5,000 units Q8HR for DVT prophylaxis. Monitor pt. for signs of bleeding. (7) Schizophrenia Current Visit: Yes Status: Chronic Assessment and plan: Hx of chronic schizophrenia. Pt. does not currently take medications for this. SW consult to assess for psychiatric referral for medication mgmt. Qualifiers: Schizophrenia type: unspecified Qualified Code(s): F20.9 - Schizophrenia, unspecified - Time Spent With Patient Total time spent is greater than 50% in coordination of care (as documented) at patient's floor/unit and/or counseling patient: Greater than 35 minutes <Lee Anaya - Last Filed: 02/08/18 14:52> Date of Encounter: 02/08/18 Internal Medicine - H&P: HPI History of present illness: Mr. Adkins is a 67 year old male All Systems PM: A 10-system review of systems was performed and is negative for pertinent findings except as documented above in the HPI. - Constitutional Vitals: Temp Pulse Resp BP Pulse Ox 97.8 F 61 16 115/80 95 02/08/18 11:00 02/08/18 11:00 02/08/18 11:00 02/08/18 11:00 02/08/18 11:00 Internal Med - H&P Results - Labs CBC & Chem 7: 02/08/18 08:45 02/08/18 08:45 - Assessment and plan (1) Fall Current Visit: Yes Status: Acute Qualifiers: Encounter type: initial encounter Qualified Code(s): W19.XXXA - Unspecified fall, initial encounter (2) DVT prophylaxis Current Visit: Yes Status: Acute (3) Leg weakness, bilateral Current Visit: Yes Status: Acute (4) HTN (hypertension) Current Visit: Yes Status: Chronic Qualifiers: Hypertension type: essential hypertension Qualified Code(s): I10 - Essential (primary) hypertension (5) HLD (hyperlipidemia) Current Visit: Yes Status: Chronic Qualifiers: Hyperlipidemia type: pure hypercholesterolemia Qualified Code(s): E78.00 - Pure hypercholesterolemia, unspecified; E78.0 - Pure hypercholesterolemia (6) Anxiety and depression Current Visit: Yes Status: Chronic (7) Schizophrenia Current Visit: Yes Status: Chronic Qualifiers: Schizophrenia type: unspecified Qualified Code(s): F20.9 - Schizophrenia, unspecified - Time Spent With Patient Total time spent is greater than 50% in coordination of care (as documented) at patient's floor/unit and/or counseling patient: - Attending Attestation Patient seen and examined independent of the nurse practitioner. History and physical and assessment plan reviewed and agreed with as above. -Patient presents with several week history of lower extremity weakness; patient denies any loss or change in bowel or bladder function; patient states that he is unable to ambulate due to this weakness -On exam the patient is able to lift both feet up symmetrically and has intact sensation; but does appear to have some mild weakness with dorsi and plantar flexion -We will obtain MRI of the brain T-spine and L-spine to rule out neurologic cause of weakness; will also consult PT OT; should any abnormalities be found on imaging will have neurology evaluate the patient.
[2018-02-08] MEDS: Aspirin Enteric Coated 81 MG Tablet PO SCH (17:38)
[2018-02-08] MEDS: *HR* Heparin 5,000 UNIT/ML VIAL SQ SCH (21:26)
[2018-02-08] MEDS: Melatonin 3 MG TABLET PO SCH (21:27)
[2018-02-09] MEDS: *HR* Heparin 5,000 UNIT/ML VIAL SQ SCH ×3 (05:29→21:36)
[2018-02-09 06:31] LABS: Basophils % 0.4 %; Eosinophils # 0.2 K/mcL (0.0-0.6); Eosinophils % 2.2 %; Hematocrit 40.3 % (37.5-50.1); Hemoglobin 13.4 g/dL (12.9-16.9); Immature Granulocytes % 0.3 % (0-4); Lymphocytes # 1.9 K/mcL (0.6-4.6); Lymphocytes % 25.5 %; Mean Corpuscular HGB Conc 33.3 g/dL (31.6-35.5); Mean Corpuscular Hemoglobin 30.7 pg (28.0-33.3); Mean Corpuscular Volume 92.4 fL (83.0-100.0); Mean Platelet Volume 9.8 fL (9.4-12.4); Monocytes # 0.6 K/mcL (0.0-1.3); Monocytes % 7.7 %; Neutrophils # 4.7 K/mcL (1.6-8.9); Platelet Count 153 K/mcL (140-400); Red Blood Count 4.36 M/mcL (4.19-5.50); Red Cell Distribution Width 13.3 % (11.5-14.5); Segmented Neutrophils % 63.9 %
[2018-02-09 07:02] LABS: Alanine Aminotransferase 24 Units/L (7-52); Albumin 3.7 g/dL (3.5-5.7); Albumin/Globulin Ratio 1.3 (1.1-2.2); Alkaline Phosphatase 95 Units/L (34-104); Aspartate Amino Transferase 19 Units/L (13-39); BUN/Creatinine Ratio 25 (6-26); Bilirubin,Total 1.3 mg/dL (0.3-1.0); Blood Urea Nitrogen 16 mg/dL (8-23); Calcium 8.9 mg/dL (8.6-10.3); Carbon Dioxide 23 mEq/L (23-29); Chloride 103 mEq/L (98-107); Chol/HDL Ratio 3.9 (0-4.9); Cholesterol 114 mg/dL (< 200); Globulin 2.8 g/dL (2.4-3.5); Glucose 129 mg/dL (70-105); HDL Cholesterol 29 mg/dL (40-59); LDL Cholesterol,Calculated 65 mg/dL (0-99); Magnesium 2.2 mg/dL (1.6-2.6); Osmolality,Calculated 279 (280-300); Potassium 4.1 mEq/L (3.5-5.1); Sodium 133 mEq/L (136-145); Total Protein 6.5 g/dL (6.4-8.9); Triglycerides 99 mg/dL (< 150); eGFR For Non-African Americans > 60 (> 60)
[2018-02-09 08:33] LABS: Estimated Average Glucose 126 mg/dl
[2018-02-09] MEDS: Aspirin Enteric Coated 81 MG Tablet PO SCH (08:59)
[2018-02-09] MEDS: Furosemide 20 MG TABLET PO SCH (08:59)
[2018-02-09] MEDS: Cholecalciferol (D-3) 1,000 UNIT TABLET PO SCH (08:59)
[2018-02-09] MEDS: Ascorbic Acid 500 MG TABLET PO SCH (08:59)
--- NOTE | 2018-02-09 17:39 | Internal Med Progress Note ---
Hospitalist Progress Note - Encounter Date of Encounter: 02/09/18 Time of Encounter: 17:00 - Subjective Interval History: Patient is qualification for admission status will replace in-house order. Patient continues to complain that he is unable to walk and has been reviewed by multiple staff members of being ambulatory within his room. He denies any chest pain shortness of breath or leg weakness just continues to state "I cannot walk". He does report that he lives in a assisted. Denies any abuse falls denies any other residents shadowing or being mean to him. He denies any CVA history denies any back pain. He is unsure what causes his Lasix to go week for him to fall. - Exam Vitals: Temp Pulse Resp BP Pulse Ox 98.1 F 73 15 138/80 93 02/09/18 15:08 02/09/18 15:08 02/09/18 15:08 02/09/18 15:08 02/09/18 15:08 Exam: As above - Assessment and Plan (1) Leg weakness, bilateral Current Visit: Yes Status: Acute Assessment and Plan: Patient is up ambulatory in the room has been reviewed by staff are going to the bathroom and taking a few steps from the chair to his bed. however, when you ask how he is doing he continues to state that he is unable to. PT has evaluated him and will continue with daily monitoring as reeducation as recommended per physical therapy On physical exam today patient did not exhibit any weakness with the lower extremities. , DTRs remain 2+ in the lower extremities MRI of thoracic spine without contrast showed mild degenerative changes of the thoracic spine no significant spinal Canal stenosis or neural foraminal stenosis. No convincing evidence deficits osteomyelitis or abnormal lordosis MRI of the LS spine was reviewed and does show multilevel degenerative disc disease of the lumbar spine of findings her greatest at L5-S1. Which does show bilateral facet hypertrophic changes in plate hypertrophic changes mild disc bulging severe left foraminal narrowing is noted. (2) Fall Current Visit: Yes Status: Acute Assessment and Plan: Patient continues to complain of leg weakness and that he is unable to ambulate however he denies any falls during his hospital stay. He was evaluated by physical therapy, with recommendations of therapeutic exercise therapeutic activity gait training and neuromuscular reeducation Follow-up will be completed for re-evaluation once daily Tuesday through Tuesday during his acute stay We will continue to monitor with Precautions (3) HTN (hypertension) Current Visit: Yes Status: Chronic Assessment and Plan: Blood pressure remains mildly elevated but stable at 138/80 we will continue to monitor and continue with his daily medications (4) HLD (hyperlipidemia) Current Visit: Yes Status: Chronic Assessment and Plan: Review of today's lab work on fasting lipids shows that he is in very good control with his history of hyperlipidemia with triglycerides at 99 total cholesterol was 114 LDL is 65 and HDL was slightly low at 29 We will continue with low-cholesterol diet and indications (5) Anxiety and depression Current Visit: Yes Status: Chronic Assessment and Plan: Patient has a flat affect T the fourth eye contact must be motivated to move about in the room and to perform ADLs Currently he is on no medications, for depression or for his schizophrenia we will consult psychology. (6) Schizophrenia Current Visit: Yes Status: Chronic Assessment and Plan: Due to his fixation of not being able to walk on no medications for depression and anxiety and for schizophrenia psychiatric consult has been placed. We will follow up with their recommendations MRI is reviewed of the head and brain no acute infarct intracranial hemorrhage or significant mass effect is noted. Chronic small vessel ischemia white matter disease and diffuse cerebral volume loss is present. (7) DVT prophylaxis Current Visit: Yes Status: Acute Assessment and Plan: Per protocol - Summary of Assessment and Plan Summary of Assessment and Plan: motor deficit was change status to an inpatient hospitalization expected course of not less than 3 days. He will be continued to be followed with reeducation and, strengthening of his lower extremities due to chief complaints of leg weakness and unable to walk. Per physical therapy on a daily basis Tuesday through Tuesday. Currently he is on no medications for his depression or schizophrenia we have placed an order for consult to psychiatry. Pending results and evaluation will follow up with recommendation. - Time Spent with Patient Total time spent is greater than 50% in coordination of care (as documented) at patient's floor/unit and/or counseling patient: less than 15 minutes Plan of Care Discussed with: patient Internal Medicine: Result - Labs CBC & Chem 7: 02/09/18 05:53 02/09/18 05:53 Labs: Short CBC 02/09/18 Range/Units 05:53 WBC 7.4 (4.3-11.1) K/mcL Hgb 13.4 (12.9-16.9) g/dL Hct 40.3 (37.5-50.1) % Plt Count 153 (140-400) K/mcL Neutrophils # 4.7 (1.6-8.9) K/mcL BMP 02/09/18 05:53 Sodium 133 L Potassium 4.1 Chloride 103 Carbon Dioxide 23 BUN 16 Creatinine 0.65 L Glucose 129 H Calcium 8.9 Liver Function 02/09/18 Range/Units 05:53 Total Bilirubin 1.3 H (0.3-1.0) mg/dL AST 19 (13-39) Units/L ALT 24 (7-52) Units/L Alkaline Phosphatase 95 (34-104) Units/L Albumin 3.7 (3.5-5.7) g/dL - Impressions Impressions Brain MRI 02/08/18 13:34 IMPRESSION: No acute infarct, intracranial hemorrhage, or significant mass effect. Chronic small vessel ischemic white matter disease and diffuse cerebral volume loss. D/ / 02/08/2018 20:06:33 Ruperto Bernabe MD / keke Interpreting Provider: Ruperto Bernabe MD Lumbar Spine MRI 02/08/18 13:35 IMPRESSION: Multilevel degenerative disc disease throughout the lumbar spine as described. Findings are greatest at L5-S1. See above for details of each level D/ / Mando Nevarez / Mando Nevarez Interpreting Provider: Mando Nevarez Thoracic Spine MRI 02/08/18 13:35 IMPRESSION: Mild degenerative changes of the thoracic spine. No significant spinal canal stenosis or neural foraminal stenosis. No convincing evidence of discitis, osteomyelitis or abnormal marrow signal. D/ / 02/08/2018 20:19:30 Ruperto Bernabe MD / keke Interpreting Provider: Ruperto Bernabe MD Consult Discharge Plan - Plan Instructions: Hyponatremia (DC), Hyponatremia (GEN) (2) Fall Qualifiers: Encounter type: initial encounter Qualified Code(s): W19.XXXA - Unspecified fall, initial encounter (3) HTN (hypertension) Qualifiers: Hypertension type: essential hypertension Qualified Code(s): I10 - Essential (primary) hypertension (4) HLD (hyperlipidemia) Qualifiers: Hyperlipidemia type: pure hypercholesterolemia Qualified Code(s): E78.00 - Pure hypercholesterolemia, unspecified; E78.0 - Pure hypercholesterolemia (6) Schizophrenia Qualifiers: Schizophrenia type: unspecified Qualified Code(s): F20.9 - Schizophrenia, unspecified
[2018-02-09] MEDS: Melatonin 3 MG TABLET PO SCH (21:36)
--- NOTE | 2018-02-10 00:43 | Electrocardiograph Report ---
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
[2018-02-10 05:42] LABS: Basophils % 0.5 %; Eosinophils # 0.2 K/mcL (0.0-0.6); Eosinophils % 2.2 %; Hematocrit 38.3 % (37.5-50.1); Immature Granulocytes % 0.2 % (0-4); Lymphocytes # 1.9 K/mcL (0.6-4.6); Lymphocytes % 23.6 %; Mean Corpuscular HGB Conc 33.9 g/dL (31.6-35.5); Mean Corpuscular Hemoglobin 30.9 pg (28.0-33.3); Monocytes # 0.6 K/mcL (0.0-1.3); Monocytes % 7.7 %; Neutrophils # 5.4 K/mcL (1.6-8.9); Platelet Count 166 K/mcL (140-400); Red Blood Count 4.21 M/mcL (4.19-5.50); Red Cell Distribution Width 13.2 % (11.5-14.5); Segmented Neutrophils % 65.8 %
[2018-02-10 05:58] LABS: INR 1.1; Prothrombin Time 12.2 Seconds (9.4-12.1)
[2018-02-10 06:00] LABS: Activated Partial Thrombo Time 48.5 Seconds (26.0-36.0)
[2018-02-10] MEDS: *HR* Heparin 5,000 UNIT/ML VIAL SQ SCH ×3 (06:03→20:34)
[2018-02-10 06:08] LABS: Alanine Aminotransferase 21 Units/L (7-52); Albumin 3.9 g/dL (3.5-5.7); Albumin/Globulin Ratio 1.2 (1.1-2.2); Alkaline Phosphatase 99 Units/L (34-104); Aspartate Amino Transferase 15 Units/L (13-39); BUN/Creatinine Ratio 24 (6-26); Bilirubin,Total 1.1 mg/dL (0.3-1.0); Blood Urea Nitrogen 16 mg/dL (8-23); Calcium 9.1 mg/dL (8.6-10.3); Carbon Dioxide 26 mEq/L (23-29); Chloride 105 mEq/L (98-107); Globulin 3.2 g/dL (2.4-3.5); Glucose 138 mg/dL (70-105); Osmolality,Calculated 287 (280-300); Sodium 137 mEq/L (136-145); Total Protein 7.1 g/dL (6.4-8.9); eGFR For Non-African Americans > 60 (> 60)
[2018-02-10] MEDS: Cholecalciferol (D-3) 1,000 UNIT TABLET PO SCH (08:37)
[2018-02-10] MEDS: Furosemide 20 MG TABLET PO SCH (08:38)
[2018-02-10] MEDS: Ascorbic Acid 500 MG TABLET PO SCH (08:38)
[2018-02-10] MEDS: Aspirin Enteric Coated 81 MG Tablet PO SCH (08:38)
--- NOTE | 2018-02-10 13:38 | Consult Note ---
Date of Encounter: 02/10/18 Time of Encounter: 13:10 Assessment & Recommendation (1) Schizophrenia Current visit: Yes Status: Chronic Assessment & Recommendation: pt stable at present. Qualifiers: Schizophrenia type: unspecified Qualified Code(s): F20.9 - Schizophrenia, unspecified History of Present Illness Patient: new to practice Requesting Physician: Jeffery Anaya DO Reason for consult: PSYCHOSIS History of present illness: Mr. Adkins is a 67 year old male WAS consulted today for psychosis. Patient seen at his bedside , pleasant , cooperative white male lives at residential h/o Schizophrenia, HTN ,HPL came to hospital as his legs gave up on him , he states they have been weak and i fell , states he is worried about it as he can not walk and has no strenght in his legs. He has been seen [place] for his psych and gets monthly injection of INVEGA SUSTENNA , last inj was given on 01/31/18 as per him. He denies any auditory quevedo,no visual quevedo, no paranoia , ideas of reference. he is stable and is compliant with his behavioural health treatment. He denies any depressive s/s , states worried about his legs , but feels better as doctor said to him will work with physical therapist . He at present psychiatrically stable. A/P h/o Schizophrenia and medical as per chart no treatment recommended, has f/u appt. Thank you for consult and involving us in his care. Will Sign off. CC: Jeffery Anaya DO cc: I COULD BE BETTER Past Med Surg Social Fam HX - Past Medical History Medical history: hyperlipidemia, hypertension - Past Psychiatric History Psychiatric history: Reports: schizophrenia, previous psychiatric hospitalization Family psychiatric history: Yes (aunts have schizophrenia) Family History of Suicide: Unknown - Social History Smoking Status: Never smoker Smokeless Tobacco Status: No Alcohol use: none Drug use: none - Family History Mother Race: Family Member Ethnicity: Non- Living Status: Age at : 79 Cause of : MRSA in decubitus ulcer Father Race: Family Member Ethnicity: Non- Living Status: Age at : 64 Cause of : Emphysema Hx Family Respiratory Disorders: Yes (Emphysema/COPD) Sister Race: Family Member Ethnicity: Non- Living Status: Still Living Hx Family Respiratory Disorders: Yes (COPD/Emphysema) Medications & Allergies Ascorbic Acid [Vitamin C with Stephy Hips] 500 mg PO DAILY 01/08/18 [History] Aspirin [Adult Aspirin] 81 mg PO DAILY 01/08/18 [History] Cholecalciferol (D-3) [Vitamin D] 2,000 unit PO DAILY 01/08/18 [History] Krill Oil 500 mg PO DAILY 01/08/18 [History] Melatonin [Melatin] 3 mg PO HS 01/08/18 [History] Atorvastatin [Lipitor] 40 mg PO HS #30 tablet 01/10/18 [Rx] Carvedilol [Coreg] 6.25 mg PO BIDWM #60 tablet 01/10/18 [Rx] Furosemide [Lasix] 20 mg PO DAILY #30 tablet 01/10/18 [Rx] Ibuprofen 200 mg PO TID 5 Days #15 tablet 01/10/18 [Rx] 3 Allergy/AdvReac Type Severity Reaction Status Date / Time No Known Allergies Allergy Verified 01/08/18 09:04 Psychiatry Exam - Constitutional Vitals: Temp Pulse Resp BP Pulse Ox 98.8 F 76 15 147/87 93 02/10/18 07:05 02/10/18 07:05 02/10/18 07:05 02/10/18 07:05 02/10/18 07:05 General appearance: age & developmentally appropriate - Musculoskeletal Strength & Tone: normal for patient - Psychiatric Patient Orientation: Yes Person, Yes Time, Yes Place Level of alertness: Alert Behavior: calm, cooperative Psychomotor activity: Normal Eye Contact: Maintains Eye Contact Mood Description: Euthymic/stable Affect description: congruent with mood, full range Speech Volume: Normal Speech pattern: normal rate, normal rhythm, normal tone, fluent, spontaneous Language & Vocabulary: consistent with education Thought Process: Linear, Goal Oriented Thought Content: No Suicidal ideation, No Homicidal ideation, No Overt delusions Perceptual Disturbances: No Auditory hallucinations, No Visual hallucinations Attention Span Ability: Capable of Focused Attention Memory Description: Grossly Intact Patient Reliability: Reliable Historian Fund of knowledge: Yes abstraction ability, Yes aware of current events Intelligence Estimate: Average Judgment: Good Insight: Full Results - Labs Labs: Laboratory Last Values WBC 8.2 K/mcL (4.3-11.1) 02/10/18 05:06 RBC 4.21 M/mcL (4.19-5.50) 02/10/18 05:06 Hgb 13.0 g/dL (12.9-16.9) 02/10/18 05:06 Hct 38.3 % (37.5-50.1) 02/10/18 05:06 MCV 91.0 fL (83.0-100.0) 02/10/18 05:06 MCH 30.9 pg (28.0-33.3) 02/10/18 05:06 MCHC 33.9 g/dL (31.6-35.5) 02/10/18 05:06 RDW 13.2 % (11.5-14.5) 02/10/18 05:06 Plt Count 166 K/mcL (140-400) 02/10/18 05:06 MPV 10.0 fL (9.4-12.4) 02/10/18 05:06 Immature Gran % 0.2 % (0-4) 02/10/18 05:06 Seg Neutrophils % 65.8 % 02/10/18 05:06 Lymphocytes % 23.6 % 02/10/18 05:06 Monocytes % 7.7 % 02/10/18 05:06 Eosinophils % 2.2 % 02/10/18 05:06 Basophils % 0.5 % 02/10/18 05:06 Neutrophils # 5.4 K/mcL (1.6-8.9) 02/10/18 05:06 Lymphocytes # 1.9 K/mcL (0.6-4.6) 02/10/18 05:06 Monocytes # 0.6 K/mcL (0.0-1.3) 02/10/18 05:06 Eosinophils # 0.2 K/mcL (0.0-0.6) 02/10/18 05:06 Basophils # 0.0 K/mcL (0.0-0.2) 02/10/18 05:06 PT 12.2 Seconds (9.4-12.1) H 02/10/18 05:06 INR 1.1 02/10/18 05:06 APTT 48.5 Seconds (26.0-36.0) H 02/10/18 05:06 Sodium 137 mEq/L (136-145) 02/10/18 05:06 Potassium 4.0 mEq/L (3.5-5.1) 02/10/18 05:06 Chloride 105 mEq/L (98-107) 02/10/18 05:06 Carbon Dioxide 26 mEq/L (23-29) 02/10/18 05:06 BUN 16 mg/dL (8-23) 02/10/18 05:06 Creatinine 0.67 mg/dL (0.70-1.30) L 02/10/18 05:06 Est GFR ( Amer) > 60 (> 60) 02/10/18 05:06 Est GFR (Non-Af Amer) > 60 (> 60) 02/10/18 05:06 BUN/Creatinine Ratio 24 (6-26) 02/10/18 05:06 Glucose 138 mg/dL (70-105) H 02/10/18 05:06 Est Mean Plasma Glucose 126 mg/dl 02/09/18 05:53 Hemoglobin A1c 6.0 % (-5.6) H 02/09/18 05:53 Calculated Osmolality 287 (280-300) 02/10/18 05:06 Calcium 9.1 mg/dL (8.6-10.3) 02/10/18 05:06 Magnesium 2.2 mg/dL (1.6-2.6) 02/09/18 05:53 Total Bilirubin 1.1 mg/dL (0.3-1.0) H 02/10/18 05:06 AST 15 Units/L (13-39) 02/10/18 05:06 ALT 21 Units/L (7-52) 02/10/18 05:06 Alkaline Phosphatase 99 Units/L (34-104) 02/10/18 05:06 Creatine Kinase 125 Units/L (30-223) 02/08/18 08:45 Troponin I < 0.03 ng/mL (< 0.04) 02/08/18 08:45 Serum Total Protein 7.1 g/dL (6.4-8.9) 02/10/18 05:06 Albumin 3.9 g/dL (3.5-5.7) 02/10/18 05:06 Globulin 3.2 g/dL (2.4-3.5) 02/10/18 05:06 Albumin/Globulin Ratio 1.2 (1.1-2.2) 02/10/18 05:06 Triglycerides 99 mg/dL (< 150) 02/09/18 05:53 Cholesterol 114 mg/dL (< 200) 02/09/18 05:53 LDL Cholesterol, Calc 65 mg/dL (0-99) 02/09/18 05:53 VLDL Cholesterol, Calc 20 mg/dL (< 31) 02/09/18 05:53 HDL Cholesterol 29 mg/dL (40-59) L 02/09/18 05:53 Cholesterol/HDL Ratio 3.9 (0-4.9) 02/09/18 05:53 Urine Color Yellow (Yellow) 02/08/18 09:24 Urine Clarity Clear (Clear) 02/08/18 09:24 Urine pH 6.0 pH Units (5.0-8.0) 02/08/18 09:24 Ur Specific Palm 1.008 (1.010-1.025) L 02/08/18 09:24 Urine Protein Negative mg/dL (Neg-Trace) 02/08/18 09:24 Urine Glucose (UA) Normal mg/dL (Normal) 02/08/18 09:24 Urine Ketones Negative mg/dL (Negative) 02/08/18 09:24 Urine Blood Negative (Negative) 02/08/18 09:24 Urine Nitrite Negative (Negative) 02/08/18 09:24 Urine Bilirubin Negative (Negative) 02/08/18 09:24 Urine Urobilinogen Normal mg/dL (Normal) 02/08/18 09:24 Ur Leukocyte Esterase Negative (Negative) 02/08/18 09:24 Consult Discharge Plan - Plan Instructions: Hyponatremia (DC), Hyponatremia (GEN) [facility]errals: [facility] [Primary Care Provider] -
--- NOTE | 2018-02-10 14:42 | Internal Med Progress Note ---
Hospitalist Progress Note - Encounter Date of Encounter: 02/10/18 Time of Encounter: 14:40 - Subjective Interval History: Pt seen and examined in the room, He reported has being walking, using bathroom , and being active. When discussed about discharge, he said he can't be discharged because he can't walk. He has no headache, numbness, or weakness. - Exam Vitals: Temp Pulse Resp BP Pulse Ox 98.8 F 76 15 147/87 93 02/10/18 07:05 02/10/18 07:05 02/10/18 07:05 02/10/18 07:05 02/10/18 07:05 Exam: PHYSICAL EXAMINATION: GENERAL APPEARANCE: The patient is alert, oriented and in no acute distress. HEENT: Head is normocephalic. The sinuses are nontender. Pupils are equal and reactive. The nares are patent. Oropharynx clear without lesions. NECK: Supple without lymphadenopathy. HEART: Regular rate and rhythm. LUNGS: No crackles or wheezes are heard. ABDOMEN: Soft, nontender, nondistended with good bowel sounds heard. Inguinal area is normal. EXTREMITIES: Without cyanosis, clubbing or edema. NEUROLOGICAL: Gross nonfocal. SKIN: Warm and dry without any rash. - Assessment and Plan (1) Fall Current Visit: Yes Status: Acute Assessment and Plan: Patient continues to complain of leg weakness and that he is unable to ambulate however he denies any falls during his hospital stay. He was evaluated by physical therapy, with recommendations of therapeutic exercise therapeutic activity gait training and neuromuscular reeducation We will continue to monitor with Precautions (2) Leg weakness, bilateral Current Visit: Yes Status: Acute Assessment and Plan: Patient is up ambulatory in the room has been reviewed by staff are going to the bathroom and taking a few steps from the chair to his bed. however, when you ask how he is doing he continues to state that he is unable to. PT has evaluated him and will continue with daily monitoring as reeducation as recommended per physical therapy On physical exam today patient did not exhibit any weakness with the lower extremities. , DTRs remain 2+ in the lower extremities MRI of thoracic spine without contrast showed mild degenerative changes of the thoracic spine no significant spinal Canal stenosis or neural foraminal stenosis. No convincing evidence deficits osteomyelitis or abnormal lordosis MRI of the LS spine was reviewed and does show multilevel degenerative disc disease of the lumbar spine of findings her greatest at L5-S1. Which does show bilateral facet hypertrophic changes in plate hypertrophic changes mild disc bulging severe left foraminal narrowing is noted. Neurology was consulted and no further recommendation. (3) HTN (hypertension) Current Visit: Yes Status: Chronic Assessment and Plan: Blood pressure remains mildly elevated but stable at 138/80 we will continue to monitor and continue with his daily medications (4) HLD (hyperlipidemia) Current Visit: Yes Status: Chronic Assessment and Plan: Review of today's lab work on fasting lipids shows that he is in very good control with his history of hyperlipidemia with triglycerides at 99 total cholesterol was 114 LDL is 65 and HDL was slightly low at 29 We will continue with low-cholesterol diet and indications (5) Anxiety and depression Current Visit: Yes Status: Chronic Assessment and Plan: Patient has a flat affect T the fourth eye contact must be motivated to move about in the room and to perform ADLs. Psych consulted and recommendation see below. (6) Schizophrenia Current Visit: Yes Status: Chronic Assessment and Plan: Psych consulted, Pt currently received monthly Invega injection at [place]. No further treatment recommended. (7) DVT prophylaxis Current Visit: Yes Status: Acute Assessment and Plan: Per protocol - Time Spent with Patient Total time spent is greater than 50% in coordination of care (as documented) at patient's floor/unit and/or counseling patient: Greater than 35 minutes Plan of Care Discussed with: patient Internal Medicine: Result - Labs CBC & Chem 7: 02/10/18 05:06 02/10/18 05:06 Labs: Short CBC 02/10/18 Range/Units 05:06 WBC 8.2 (4.3-11.1) K/mcL Hgb 13.0 (12.9-16.9) g/dL Hct 38.3 (37.5-50.1) % Plt Count 166 (140-400) K/mcL Neutrophils # 5.4 (1.6-8.9) K/mcL BMP 02/10/18 05:06 Sodium 137 Potassium 4.0 Chloride 105 Carbon Dioxide 26 BUN 16 Creatinine 0.67 L Glucose 138 H Calcium 9.1 Liver Function 02/10/18 Range/Units 05:06 Total Bilirubin 1.1 H (0.3-1.0) mg/dL AST 15 (13-39) Units/L ALT 21 (7-52) Units/L Alkaline Phosphatase 99 (34-104) Units/L Albumin 3.9 (3.5-5.7) g/dL - ABG Interpretation ABG results: PT/INR, D-dimer PT 12.2 Seconds (9.4-12.1) H 02/10/18 05:06 Consult Discharge Plan - Plan Instructions: Hyponatremia (DC), Hyponatremia (GEN) [facility]errals: [facility] [Primary Care Provider] - (1) Fall Qualifiers: Encounter type: initial encounter Qualified Code(s): W19.XXXA - Unspecified fall, initial encounter (3) HTN (hypertension) Qualifiers: Hypertension type: essential hypertension Qualified Code(s): I10 - Essential (primary) hypertension (4) HLD (hyperlipidemia) Qualifiers: Hyperlipidemia type: pure hypercholesterolemia Qualified Code(s): E78.00 - Pure hypercholesterolemia, unspecified; E78.0 - Pure hypercholesterolemia (6) Schizophrenia Qualifiers: Schizophrenia type: unspecified Qualified Code(s): F20.9 - Schizophrenia, unspecified
[2018-02-10] MEDS: Melatonin 3 MG TABLET PO SCH (20:34)
[2018-02-11] MEDS: *HR* Heparin 5,000 UNIT/ML VIAL SQ SCH ×3 (05:53→20:52)
[2018-02-11 06:26] LABS: Basophils % 0.4 %; Eosinophils # 0.2 K/mcL (0.0-0.6); Hematocrit 40.2 % (37.5-50.1); Hemoglobin 13.3 g/dL (12.9-16.9); Immature Granulocytes % 0.4 % (0-4); Lymphocytes % 25.6 %; Mean Corpuscular HGB Conc 33.1 g/dL (31.6-35.5); Mean Corpuscular Hemoglobin 30.6 pg (28.0-33.3); Mean Corpuscular Volume 92.4 fL (83.0-100.0); Mean Platelet Volume 10.1 fL (9.4-12.4); Monocytes # 0.7 K/mcL (0.0-1.3); Monocytes % 8.5 %; Neutrophils # 4.8 K/mcL (1.6-8.9); Platelet Count 153 K/mcL (140-400); Red Blood Count 4.35 M/mcL (4.19-5.50); Red Cell Distribution Width 13.3 % (11.5-14.5); Segmented Neutrophils % 62.1 %
[2018-02-11 06:46] LABS: Alanine Aminotransferase 19 Units/L (7-52); Albumin 3.7 g/dL (3.5-5.7); Albumin/Globulin Ratio 1.2 (1.1-2.2); Alkaline Phosphatase 93 Units/L (34-104); Aspartate Amino Transferase 16 Units/L (13-39); BUN/Creatinine Ratio 26 (6-26); Bilirubin,Total 1.1 mg/dL (0.3-1.0); Blood Urea Nitrogen 17 mg/dL (8-23); Calcium 8.9 mg/dL (8.6-10.3); Carbon Dioxide 25 mEq/L (23-29); Chloride 106 mEq/L (98-107); Globulin 3.2 g/dL (2.4-3.5); Glucose 125 mg/dL (70-105); Osmolality,Calculated 287 (280-300); Potassium 4.1 mEq/L (3.5-5.1); Sodium 137 mEq/L (136-145); Total Protein 6.9 g/dL (6.4-8.9); eGFR For Non-African Americans > 60 (> 60)
[2018-02-11] MEDS: Cholecalciferol (D-3) 1,000 UNIT TABLET PO SCH (08:30)
[2018-02-11] MEDS: Furosemide 20 MG TABLET PO SCH (08:30)
[2018-02-11] MEDS: Ascorbic Acid 500 MG TABLET PO SCH (08:30)
[2018-02-11] MEDS: Aspirin Enteric Coated 81 MG Tablet PO SCH (08:30)
--- NOTE | 2018-02-11 12:07 | Internal Med Progress Note ---
Hospitalist Progress Note - Encounter Date of Encounter: 02/11/18 Time of Encounter: 12:05 - Subjective Interval History: Pt seen and examined in the room, He reported has being walking, using bathroom , and being active. When discussed about discharge, he said he can't be discharged because he can't walk. He has no headache, numbness, or weakness. - Exam Vitals: Temp Pulse Resp BP Pulse Ox 98.7 F 62 18 152/87 98 02/11/18 11:16 02/11/18 11:16 02/11/18 11:16 02/11/18 11:16 02/11/18 11:16 Exam: PHYSICAL EXAMINATION: GENERAL APPEARANCE: The patient is alert, oriented and in no acute distress. HEENT: Head is normocephalic. The sinuses are nontender. Pupils are equal and reactive. The nares are patent. Oropharynx clear without lesions. NECK: Supple without lymphadenopathy. HEART: Regular rate and rhythm. LUNGS: No crackles or wheezes are heard. ABDOMEN: Soft, nontender, nondistended with good bowel sounds heard. Inguinal area is normal. EXTREMITIES: Without cyanosis, clubbing or edema. NEUROLOGICAL: Gross nonfocal. SKIN: Warm and dry without any rash. - Assessment and Plan (1) Fall Current Visit: Yes Status: Acute Assessment and Plan: Patient continues to complain of leg weakness and that he is unable to ambulate however he denies any falls during his hospital stay. He was evaluated by physical therapy, with recommendations of therapeutic exercise therapeutic activity gait training and neuromuscular reeducation We will continue to monitor with Precautions (2) Leg weakness, bilateral Current Visit: Yes Status: Acute Assessment and Plan: Patient is up ambulatory in the room has been reviewed by staff are going to the bathroom and taking a few steps from the chair to his bed. however, when you ask how he is doing he continues to state that he is unable to. PT has evaluated him and will continue with daily monitoring as reeducation as recommended per physical therapy On physical exam today patient did not exhibit any weakness with the lower extremities. , DTRs remain 2+ in the lower extremities MRI of thoracic spine without contrast showed mild degenerative changes of the thoracic spine no significant spinal Canal stenosis or neural foraminal stenosis. No convincing evidence deficits osteomyelitis or abnormal lordosis MRI of the LS spine was reviewed and does show multilevel degenerative disc disease of the lumbar spine of findings her greatest at L5-S1. Which does show bilateral facet hypertrophic changes in plate hypertrophic changes mild disc bulging severe left foraminal narrowing is noted. Neurology was consulted and no further recommendation. Pt refused to go back to [facility], will dc to rehab. (3) HTN (hypertension) Current Visit: Yes Status: Chronic Assessment and Plan: Blood pressure remains mildly elevated but stable at 138/80 we will continue to monitor and continue with his daily medications (4) HLD (hyperlipidemia) Current Visit: Yes Status: Chronic Assessment and Plan: Review of today's lab work on fasting lipids shows that he is in very good control with his history of hyperlipidemia with triglycerides at 99 total cholesterol was 114 LDL is 65 and HDL was slightly low at 29 We will continue with low-cholesterol diet and indications (5) Anxiety and depression Current Visit: Yes Status: Chronic Assessment and Plan: Patient has a flat affect T the fourth eye contact must be motivated to move about in the room and to perform ADLs. Psych consulted and recommendation see below. (6) Schizophrenia Current Visit: Yes Status: Chronic Assessment and Plan: Psych consulted, Pt currently received monthly Invega injection at [facility]. No further treatment recommended. (7) DVT prophylaxis Current Visit: Yes Status: Acute Assessment and Plan: Per protocol - Time Spent with Patient Total time spent is greater than 50% in coordination of care (as documented) at patient's floor/unit and/or counseling patient: Greater than 35 minutes Plan of Care Discussed with: patient Internal Medicine: Result - Labs CBC & Chem 7: 02/11/18 05:19 02/11/18 05:19 Labs: Short CBC 02/11/18 Range/Units 05:19 WBC 7.8 (4.3-11.1) K/mcL Hgb 13.3 (12.9-16.9) g/dL Hct 40.2 (37.5-50.1) % Plt Count 153 (140-400) K/mcL Neutrophils # 4.8 (1.6-8.9) K/mcL BMP 02/11/18 05:19 Sodium 137 Potassium 4.1 Chloride 106 Carbon Dioxide 25 BUN 17 Creatinine 0.65 L Glucose 125 H Calcium 8.9 Liver Function 02/11/18 Range/Units 05:19 Total Bilirubin 1.1 H (0.3-1.0) mg/dL AST 16 (13-39) Units/L ALT 19 (7-52) Units/L Alkaline Phosphatase 93 (34-104) Units/L Albumin 3.7 (3.5-5.7) g/dL - ABG Interpretation ABG results: PT/INR, D-dimer PT 12.2 Seconds (9.4-12.1) H 02/10/18 05:06 Consult Discharge Plan - Plan Instructions: Hyponatremia (DC), Hyponatremia (GEN) [facility] [Primary Care Provider[facility] - (1) Fall Qualifiers: Encounter type: initial encounter Qualified Code(s): W19.XXXA - Unspecified fall, initial encounter (3) HTN (hypertension) Qualifiers: Hypertension type: essential hypertension Qualified Code(s): I10 - Essential (primary) hypertension (4) HLD (hyperlipidemia) Qualifiers: Hyperlipidemia type: pure hypercholesterolemia Qualified Code(s): E78.00 - Pure hypercholesterolemia, unspecified; E78.0 - Pure hypercholesterolemia (6) Schizophrenia Qualifiers: Schizophrenia type: unspecified Qualified Code(s): F20.9 - Schizophrenia, unspecified
[2018-02-11] MEDS: Melatonin 3 MG TABLET PO SCH (20:53)
[2018-02-12 04:16] LABS: Basophils % 0.2 %; Eosinophils # 0.2 K/mcL (0.0-0.6); Eosinophils % 2.7 %; Hematocrit 40.9 % (37.5-50.1); Hemoglobin 13.5 g/dL (12.9-16.9); Immature Granulocytes % 0.5 % (0-4); Lymphocytes % 24.3 %; Mean Corpuscular Hemoglobin 30.3 pg (28.0-33.3); Mean Corpuscular Volume 91.7 fL (83.0-100.0); Mean Platelet Volume 9.9 fL (9.4-12.4); Monocytes # 0.8 K/mcL (0.0-1.3); Monocytes % 9.3 %; Neutrophils # 5.2 K/mcL (1.6-8.9); Platelet Count 167 K/mcL (140-400); Red Blood Count 4.46 M/mcL (4.19-5.50); Red Cell Distribution Width 13.1 % (11.5-14.5)
[2018-02-12 04:32] LABS: Alanine Aminotransferase 28 Units/L (7-52); Albumin 3.7 g/dL (3.5-5.7); Albumin/Globulin Ratio 1.2 (1.1-2.2); Alkaline Phosphatase 96 Units/L (34-104); Aspartate Amino Transferase 23 Units/L (13-39); BUN/Creatinine Ratio 27 (6-26); Bilirubin,Total 1.2 mg/dL (0.3-1.0); Blood Urea Nitrogen 17 mg/dL (8-23); Carbon Dioxide 25 mEq/L (23-29); Chloride 103 mEq/L (98-107); Globulin 3.2 g/dL (2.4-3.5); Glucose 123 mg/dL (70-105); Osmolality,Calculated 285 (280-300); Sodium 136 mEq/L (136-145); Total Protein 6.9 g/dL (6.4-8.9); eGFR For Non-African Americans > 60 (> 60)
[2018-02-12] MEDS: *HR* Heparin 5,000 UNIT/ML VIAL SQ SCH ×3 (05:48→21:33)
[2018-02-12] MEDS: Ascorbic Acid 500 MG TABLET PO SCH (09:04)
[2018-02-12] MEDS: Aspirin Enteric Coated 81 MG Tablet PO SCH (09:04)
[2018-02-12] MEDS: Cholecalciferol (D-3) 1,000 UNIT TABLET PO SCH (09:04)
[2018-02-12] MEDS: Furosemide 20 MG TABLET PO SCH (09:04)
--- NOTE | 2018-02-12 10:02 | Internal Med Progress Note ---
Hospitalist Progress Note - Encounter Date of Encounter: 02/12/18 Time of Encounter: 10:00 - Subjective Interval History: Pt seen and examined in the room, He reported has being walking, using bathroom , and being active. When discussed about discharge, he said he can't be discharged because he can't walk. He has no headache, numbness, or weakness. - Exam Vitals: Temp Pulse Resp BP Pulse Ox 98.7 F 78 15 128/79 92 02/12/18 06:48 02/12/18 06:48 02/12/18 06:48 02/12/18 06:48 02/12/18 06:48 Exam: PHYSICAL EXAMINATION: GENERAL APPEARANCE: The patient is alert, oriented and in no acute distress. HEENT: Head is normocephalic. The sinuses are nontender. Pupils are equal and reactive. The nares are patent. Oropharynx clear without lesions. NECK: Supple without lymphadenopathy. HEART: Regular rate and rhythm. LUNGS: No crackles or wheezes are heard. ABDOMEN: Soft, nontender, nondistended with good bowel sounds heard. Inguinal area is normal. EXTREMITIES: Without cyanosis, clubbing or edema. NEUROLOGICAL: Gross nonfocal. SKIN: Warm and dry without any rash. - Assessment and Plan (1) Fall Current Visit: Yes Status: Acute Assessment and Plan: Patient continues to complain of leg weakness and that he is unable to ambulate however he denies any falls during his hospital stay. He was evaluated by physical therapy, with recommendations of therapeutic exercise therapeutic activity gait training and neuromuscular reeducation We will continue to monitor with Precautions (2) Leg weakness, bilateral Current Visit: Yes Status: Acute Assessment and Plan: Patient is up ambulatory in the room has been reviewed by staff are going to the bathroom and taking a few steps from the chair to his bed. however, when you ask how he is doing he continues to state that he is unable to. PT has evaluated him and will continue with daily monitoring as reeducation as recommended per physical therapy On physical exam today patient did not exhibit any weakness with the lower extremities. , DTRs remain 2+ in the lower extremities MRI of thoracic spine without contrast showed mild degenerative changes of the thoracic spine no significant spinal Canal stenosis or neural foraminal stenosis. No convincing evidence deficits osteomyelitis or abnormal lordosis MRI of the LS spine was reviewed and does show multilevel degenerative disc disease of the lumbar spine of findings her greatest at L5-S1. Which does show bilateral facet hypertrophic changes in plate hypertrophic changes mild disc bulging severe left foraminal narrowing is noted. Neurology was consulted and no further recommendation. Pt refused to go back to [facility], will dc to rehab. (3) HTN (hypertension) Current Visit: Yes Status: Chronic Assessment and Plan: Blood pressure remains mildly elevated but stable at 138/80 we will continue to monitor and continue with his daily medications (4) HLD (hyperlipidemia) Current Visit: Yes Status: Chronic Assessment and Plan: fasting lipids shows that he is in very good control with his history of hyperlipidemia with triglycerides at 99 total cholesterol was 114 LDL is 65 and HDL was slightly low at 29 We will continue with low-cholesterol diet and indications (5) Anxiety and depression Current Visit: Yes Status: Chronic Assessment and Plan: Patient has a flat affect T the fourth eye contact must be motivated to move about in the room and to perform ADLs. Psych consulted and recommendation see below. (6) Schizophrenia Current Visit: Yes Status: Chronic Assessment and Plan: Psych consulted, Pt currently received monthly Invega injection at [facility]. No further treatment recommended. (7) DVT prophylaxis Current Visit: Yes Status: Acute Assessment and Plan: Per protocol - Time Spent with Patient Total time spent is greater than 50% in coordination of care (as documented) at patient's floor/unit and/or counseling patient: Greater than 35 minutes Plan of Care Discussed with: patient Internal Medicine: Result - Labs CBC & Chem 7: 02/12/18 03:37 02/12/18 03:37 Labs: Short CBC 02/12/18 Range/Units 03:37 WBC 8.3 (4.3-11.1) K/mcL Hgb 13.5 (12.9-16.9) g/dL Hct 40.9 (37.5-50.1) % Plt Count 167 (140-400) K/mcL Neutrophils # 5.2 (1.6-8.9) K/mcL BMP 02/12/18 03:37 Sodium 136 Potassium 4.0 Chloride 103 Carbon Dioxide 25 BUN 17 Creatinine 0.62 L Glucose 123 H Calcium 9.0 Liver Function 02/12/18 Range/Units 03:37 Total Bilirubin 1.2 H (0.3-1.0) mg/dL AST 23 (13-39) Units/L ALT 28 (7-52) Units/L Alkaline Phosphatase 96 (34-104) Units/L Albumin 3.7 (3.5-5.7) g/dL - ABG Interpretation ABG results: PT/INR, D-dimer PT 12.2 Seconds (9.4-12.1) H 02/10/18 05:06 Consult Discharge Plan - Plan Instructions: Hyponatremia (DC), Hyponatremia (GEN) [facility]: [facility] [Primary Care Provider] - (1) Fall Qualifiers: Encounter type: initial encounter Qualified Code(s): W19.XXXA - Unspecified fall, initial encounter (3) HTN (hypertension) Qualifiers: Hypertension type: essential hypertension Qualified Code(s): I10 - Essential (primary) hypertension (4) HLD (hyperlipidemia) Qualifiers: Hyperlipidemia type: pure hypercholesterolemia Qualified Code(s): E78.00 - Pure hypercholesterolemia, unspecified; E78.0 - Pure hypercholesterolemia (6) Schizophrenia Qualifiers: Schizophrenia type: unspecified Qualified Code(s): F20.9 - Schizophrenia, unspecified
[2018-02-12] MEDS: Melatonin 3 MG TABLET PO SCH (21:33)
[2018-02-13] MEDS: *HR* Heparin 5,000 UNIT/ML VIAL SQ SCH (06:39)
[2018-02-13 07:34] VITALS: BP 137/80
--- NOTE | 2018-02-13 08:56 | Discharge Summary ---
- NOTES TO OUTPATIENT PROVIDER Notes to Outpatient Provider: f/u with PCP as needed. Date of Encounter: 02/13/18 Time of Encounter: 08:54 - Discharge Diagnosis (1) Fall Priority: Primary Status: Acute Qualifiers: Encounter type: initial encounter Qualified Code(s): W19.XXXA - Unspecified fall, initial encounter (2) Leg weakness, bilateral Priority: Primary Status: Acute (3) HTN (hypertension) Priority: Secondary Status: Chronic Qualifiers: Hypertension type: essential hypertension Qualified Code(s): I10 - Essential (primary) hypertension (4) HLD (hyperlipidemia) Priority: Secondary Status: Chronic Qualifiers: Hyperlipidemia type: pure hypercholesterolemia Qualified Code(s): E78.00 - Pure hypercholesterolemia, unspecified; E78.0 - Pure hypercholesterolemia (5) Anxiety and depression Priority: Secondary Status: Chronic (6) Schizophrenia Priority: Secondary Status: Chronic Qualifiers: Schizophrenia type: unspecified Qualified Code(s): F20.9 - Schizophrenia, unspecified (7) DVT prophylaxis Priority: Primary Status: Acute Hospital course: Mr. Adkins is a 67 year old male, [facility] resident, with past medical history hypertension, hyperlipidemia, depression, anxiety, and schizophrenia presented with acute onset of weakness and inability to walk. His vital signs, labs, and imaging studies were unremarkable. MRI of thoracic spine without contrast showed mild degenerative changes of the thoracic spine no significant spinal Canal stenosis or neural foraminal stenosis. No convincing evidence deficits osteomyelitis or abnormal lordosis. MRI of the LS spine was reviewed and does show multilevel degenerative disc disease of the lumbar spine of findings her greatest at L5-S1. Which does show bilateral facet hypertrophic changes in plate hypertrophic changes mild disc bulging severe left foraminal narrowing is noted. Neurology was consulted, no organic neurological abnormalities was identified. Patient is up ambulatory in the room has been witnessed by staff and going to the bathroom and taking a few steps from the chair to his bed. however, when asked how he is doing, he continues to state that he is unable to walk. PT has evaluated him and will continue with daily monitoring as reeducation as recommended per physical therapy. Due to Hx of depression/anxiety/schizophrenia, psychiatry was consulted. Patient currently receives the treatment at the [facility] for anxiety/ depression/schizophrenia. Patient was instructed to continue follow-up at the [facility]. By reviewing the history and the talking to the staff at the [facility], patient was known to have several admissions in the past for this same complaints. 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 Patient will be discharged home to [facility] today. Patient was instructed to continue home medication as prescribed, continue to follow up at the [facility]. Discharge discussed with: patient Time spent discussing smoking cessation with patient: more than 10 minutes - Time Spent with Patient Total time spent providing and/or coordinating discharge services: Greater than 30 minutes - Discharge Medications Home Medications: Ascorbic Acid [Vitamin C with Stephy Hips] 500 mg PO DAILY 01/08/18 [History] Aspirin [Adult Aspirin] 81 mg PO DAILY 01/08/18 [History] Cholecalciferol (D-3) [Vitamin D] 2,000 unit PO DAILY 01/08/18 [History] Krill Oil 500 mg PO DAILY 01/08/18 [History] Melatonin [Melatin] 3 mg PO HS 01/08/18 [History] Atorvastatin [Lipitor] 40 mg PO HS #30 tablet 01/10/18 [Rx] Carvedilol [Coreg] 6.25 mg PO BIDWM #60 tablet 01/10/18 [Rx] Furosemide [Lasix] 20 mg PO DAILY #30 tablet 01/10/18 [Rx] Ibuprofen 200 mg PO TID 5 Days #15 tablet 01/10/18 [Rx] Allergies/Adverse Reactions: 3 Allergy/AdvReac Type Severity Reaction Status Date / Time No Known Allergies Allergy Verified 01/08/18 09:04 Date of admission: 02/09/18 17:32 Primary care physician: [facility] Anticipated date of discharge: 02/13/18 - Constitutional Vitals: Temp Pulse Resp BP Pulse Ox 98.2 F 73 16 137/80 92 02/13/18 07:33 02/13/18 07:33 02/13/18 07:33 02/13/18 07:33 02/13/18 07:33 General appearance: Present: cooperative, A&O X 3, pleasant, no acute distress, obese, answers questions appropriately Exam: PHYSICAL EXAMINATION: GENERAL APPEARANCE: The patient is alert, oriented and in no acute distress. HEENT: Head is normocephalic. The sinuses are nontender. Pupils are equal and reactive. The nares are patent. Oropharynx clear without lesions. NECK: Supple without lymphadenopathy. HEART: Regular rate and rhythm. LUNGS: No crackles or wheezes are heard. ABDOMEN: Soft, nontender, nondistended with good bowel sounds heard. Inguinal area is normal. EXTREMITIES: Without cyanosis, clubbing or edema. NEUROLOGICAL: Gross nonfocal. SKIN: Warm and dry without any rash. - Patient Status Disposition: Transfer Other Condition: Good Functional capacity at discharge: independent ambulation Overall status at discharge: patient is progressing back to baseline - Discharge Instructions Instructions: Hyponatremia (DC), Hyponatremia (GEN) [facility] Care Provider[facility] - Forms: ED Satisfaction Letter - Diet and Activity Activity: increase activity as tolerated Diet: advance to your usual diet
[2018-02-13] MEDS: Furosemide 20 MG TABLET PO SCH (09:03)
[2018-02-13] MEDS: Ascorbic Acid 500 MG TABLET PO SCH (09:03)
[2018-02-13] MEDS: Cholecalciferol (D-3) 1,000 UNIT TABLET PO SCH (09:03)
[2018-02-13] MEDS: Aspirin Enteric Coated 81 MG Tablet PO SCH (09:03)
== END 2018-02-13 14:47 | disposition home or self-care (01) | DRG 552 ==
LOC: 3BNU 08:34 → EMEROOARM 08:34 → 3BNU 10:33
PROVIDERS: ADMIT Internal Medicine; ATTEND Internal Medicine